=== PATIENT | female | born 1960 | race Caucasian/White ===

== ENCOUNTER 2018-10-12 13:40 | Inpatient (IN) | payer BC ==
[~2018-10-12] VITALS: Ht 167.6 cm; Wt 87.2 kg
[2018-10-12] VITALS (13 sets, daily range): BP systolic 97–126; BP diastolic 53–74
[~2018-10-12 13:40] MED LIST: aminocaproic acid 250 MG/1 ML inj. ONE; heparin 10,000 units/1 ML INJ ONE; papaverine 30 mg/ml 2ml inj. ONE
[2018-10-12] MEDS ORDERED: acetaminophen 1,000mg/100ml IV 100 ML IV ONE (14:13)
[2018-10-12] MEDS ORDERED: ROPIVAcaine 0.5% (5mg/ml) 30ml vial ONE (14:13)
[2018-10-12] MEDS ORDERED: nitroGLYCERIN-Tridil 50MG/D5W 250 ML IV ONE ×2 (14:18→20:03)
[2018-10-12] MEDS ORDERED: insulin glargine (Lantus) pen - multi-dose SQ PRN (14:30)
[2018-10-12] MEDS ORDERED: cefazolin/dext.iso 2gm/50ml 50 ML IV ONE (14:30)
[2018-10-12] MEDS ORDERED: dextrose 50%-water 50ml dispensing syringe IV PRN ×2 (14:30→18:55)
[2018-10-12] MEDS ORDERED: vancomycin/NS 1 GM ADD-VANTAGE 250 ML IV ONE (14:30)
--- NOTE | 2018-10-12 14:30 | NUR ---
The patient, ELISE MOTT, 58 y/o, F admitted by RENE EGAN MD, was given written information regarding hospital policies, unit procedures and contact persons. See Admission information.
[2018-10-12] MEDS ORDERED: midazolam 2 mg/2 ml injection ONE (14:39)
[2018-10-12] MEDS ORDERED: SUFENTANIL CITRATE 50 MCG/ML 2ml ampule IV ONE (14:39)
[2018-10-12] MEDS ORDERED: famotidine/PF 10 mg/ml inj IV ONE (14:40)
[2018-10-12] MEDS ORDERED: phenylephrine 10mg/ml inj. ONE (14:42)
--- NOTE | 2018-10-12 14:50 | NUR ---
To the OR on port O2 and port monitor
[2018-10-12] MEDS ORDERED: protamine sulf. 10mg/ml inj. IV ONE (14:56)
[2018-10-12] MEDS ORDERED: isoflurane 100ml inhalation liquid IH ONE (14:56)
[2018-10-12] MEDS ORDERED: nitroGLYCERIN in D5W 50mg/250ml (Tridil) infusion IV ONE (14:56)
[2018-10-12] MEDS ORDERED: DOPamine/D5W 400mg/250ml bag IV ONE (14:56)
[2018-10-12 15:41] LABS: ABG BASE EXCESS -0.3 mmol/L (-2.0-3.0); ABG HCO3 22.4 mmol/L (22.0-26.0); ABG OXYGEN SATURATION 99.1 % (95-98); ABG PCO2 31.4 mmHg (35.0-45.0); ABG PH 7.472 (7.350-7.450); CL (ABG) 109 mmol/L (99-107); FCOHb 0.6 % (0.5-1.5); FMetHb 0.3 % (0.3-1.12); FO2Hb 98.2 % (94-100); GLUCOSE (ABG) 92 mg/dl (70-105); IONIZED CA (ABG) 1.13 mmol/L (1.03-1.32); K (ABG) 3.7 mmol/L (3.3-5.1); NA (ABG) 139 mmol/L (135-145); TOTAL HEMOGLOBIN 14.3 G/dl (12.0-16.0)
[2018-10-12 15:46] LABS: ACT @ 1.70 U 319 SEC (193-297); ACT @ 2.84 U 476 SEC (260-420); BASELINE ACT 171 SEC (101-148); PATIENT WEIGHT 81.0k KG
[2018-10-12] MEDS ORDERED: papaverine 30 mg/ml 2ml inj. IA ONE (15:48)
[2018-10-12 16:20] LABS: ABG BASE EXCESS VENOUS -2.8 mmol/L; ABG PCO2 VENOUS 43.8 mmHg; ABG PO2 VENOUS 49.1 mmHg; CL (ABG) 108 mmol/L (99-107); FCOHb VENOUS 1.1 %; FHHb VENOUS 17.2 %; FMetHb VENOUS 0.1 %; FO2Hb VENOUS 81.6 %; GLUCOSE (ABG) 93 mg/dl (70-105); IONIZED CA (ABG) 1.09 mmol/L (1.03-1.32); K (ABG) 3.5 mmol/L (3.3-5.1); NA (ABG) 138 mmol/L (135-145); TOTAL HEMOGLOBIN 12.6 G/dl (12.0-16.0)
[2018-10-12 17:31] LABS: ABG BASE EXCESS -3.2 mmol/L (-2.0-3.0); ABG HCO3 20.7 mmol/L (22.0-26.0); ABG OXYGEN SATURATION 99.3 % (95-98); ABG PCO2 33.4 mmHg (35.0-45.0); CL (ABG) 109 mmol/L (99-107); FCOHb 0.8 % (0.5-1.5); FMetHb 0.3 % (0.3-1.12); FO2Hb 98.2 % (94-100); GLUCOSE (ABG) 101 mg/dl (70-105); IONIZED CA (ABG) 1.11 mmol/L (1.03-1.32); K (ABG) 3.8 mmol/L (3.3-5.1); NA (ABG) 139 mmol/L (135-145); TOTAL HEMOGLOBIN 12.6 G/dl (12.0-16.0)
[2018-10-12] MEDS ORDERED: albumin (Human) 5% 250ml 250 ML IV ONE (17:38)
[2018-10-12] MEDS: insulin Lispro (HumaLOG) vial - multi-dose SQ SCH (18:00)
--- NOTE | 2018-10-12 18:19 | NUR ---
181..Patient in room CICU 2011. I have received report from Farnaz GROVE and had the opportunity to ask questions and assume patient care.
[2018-10-12] MEDS: insulin regular, human 100 UNIT in normal saline 100ml IV soln 100 ML IV SCH ×2 (18:25)
[2018-10-12] MEDS ORDERED: sodium bicarbonate (8.4%) inj. 1 MEQ/ML ML ONE (18:32)
[2018-10-12 18:36] LABS: ABG BASE EXCESS VENOUS -7.2 mmol/L; ABG HCO3 VENOUS 19.2 mmol/L; ABG PO2 VENOUS 41.5 mmHg; CL (ABG) 110 mmol/L (99-107); FCOHb VENOUS 1.3 %; FHHb VENOUS 27.6 %; FMetHb VENOUS 0.3 %; FO2Hb VENOUS 70.8 %; GLUCOSE (ABG) 106 mg/dl (70-105); K (ABG) 3.4 mmol/L (3.3-5.1); NA (ABG) 139 mmol/L (135-145); TOTAL HEMOGLOBIN 11.8 G/dl (12.0-16.0)
[2018-10-12] MEDS ORDERED: niCARDipine-NS 40mg/200ml IVPB 200 ML IV PRN (18:54)
[2018-10-12] MEDS ORDERED: sodium chloride 0.45% 1,000 ML IV SCH (18:54)
[2018-10-12] MEDS ORDERED: DOPamine 400mg/D5W 250ml 250 ML IV PRN (18:54)
[2018-10-12] MEDS ORDERED: nitroGLYCERIN-Tridil 50MG/D5W 250 ML IV PRN (18:54)
[2018-10-12] MEDS ORDERED: normal saline 250ml IV soln 250 ML IV PRN (18:55)
[2018-10-12] MEDS ORDERED: potassium Cl 20mEq/100mL bag 100 ML IV PRN (18:55)
[2018-10-12] MEDS ORDERED: albumin (Human) 5% 250ml 250 ML IV PRN (18:55)
[2018-10-12] MEDS ORDERED: magnesium 4gm in 100ml NS 100 ML IV PRN (18:55)
[2018-10-12] MEDS ORDERED: sodium phosphate inj. 30 MMOL in dextrose 5%-water 250 ML IV PRN (18:55)
[2018-10-12] MEDS ORDERED: morphine 4 MG/ML inj SYRINge IV PRN (18:55)
[2018-10-12] MEDS ORDERED: pantoprazole 40 MG vial IV ONE (18:55)
[2018-10-12] MEDS ORDERED: ondansetron/PF 4mg/2ml inj IV PRN (18:55)
[2018-10-12] MEDS ORDERED: acetaminophen 325mg tablet PO PRN (18:55)
[2018-10-12] MEDS ORDERED: magnesium hydroxide 30ml (MOM) UD suspension PO PRN (18:55)
[2018-10-12] MEDS ORDERED: sodium phosphate inj. 15 MMOL in dextrose 5%-water 150 ML IV PRN (18:55)
[2018-10-12] MEDS ORDERED: metoclopramide 5 mg/ml inj IV PRN (18:55)
[2018-10-12] MEDS ORDERED: magnesium 2GM in 50ml NS 50 ML IV PRN (18:55)
[2018-10-12] MEDS ORDERED: Neutra Phos packet PO PRN (18:55)
[2018-10-12] MEDS: insulin regular, human inj. 100 UNITS in normal saline 100ml IV soln 100 ML IV SCH ×2 (18:55)
[2018-10-12] MEDS ORDERED: ipratropium/albuterol 3ml nebule IH PRN (19:20)
[2018-10-12] MEDS ORDERED: sodium bicarbonate (8.4%) 1 mEq/ml syringe ONE (19:29)
[2018-10-12 19:30] LABS: ABG BASE EXCESS -5.9 mmol/L (-2.0-3.0); ABG HCO3 20.4 mmol/L (22.0-26.0); ABG OXYGEN SATURATION 97.7 % (95-98); ABG PCO2 (T) 43.3 mmHg (32.0-45.0); ABG PH (T) 7.291 (7.350-7.450); ABG PO2 (T) 130.2 mmHg (83-108); FCOHb 0.3 % (0.5-1.5); FMetHb 0.2 % (0.3-1.12); FO2Hb 97.2 % (94-100); MINUTE VOLUME 6 L/min; PEEP 5 cm H2O; RESPIRATORY RATE 12 b/min; RESPIRATORY RATE (OBSERVED) 12 b/min; TIDAL VOLUME 600 mL; TOTAL HEMOGLOBIN 12.3 G/dl (12.0-16.0)
[2018-10-12] MEDS: morphine 4 MG/ML inj SYRINge IV PRN ×3 (19:31→23:15)
[2018-10-12] MEDS: mupirocin 2% nasal ointment 1gm UD NS SCH (19:31)
[2018-10-12] MEDS: vancomycin/NS 1 GM ADD-VANTAGE 250 ML IV SCH (19:33)
[2018-10-12] MEDS ORDERED: propofol 1000mg/100ml bottle 100 ML IV ONE (19:51)
[2018-10-12] MEDS: mupirocin 2% ointment 22GM NS SCH (20:00)
[2018-10-12] MEDS: docusate sod 100mg capsule PO SCH (20:00)
[2018-10-12 20:02] LABS: ALANINE AMINOTRANSFERASE 7 U/L (12-78); ALBUMIN/GLOBULIN RATIO 1.5 (1.1-1.5); ALKALINE PHOSPHATASE 46 IU/L (46-116); ANION GAP 10 (8-16); ASPARTATE AMINO TRANSFERASE 16 U/L (10-37); BILIRUBIN,TOTAL 0.5 MG/DL (0.1-1.0); BLOOD UREA NITROGEN 10 MG/DL (7-18); BUN/CREATININE RATIO 17.2 (6.6-38.0); CALCIUM 7.3 MG/DL (8.5-10.1); CHLORIDE 113 MMOL/L (99-107); CREATININE 0.58 MG/DL (0.40-0.90); GLUCOSE 118 MG/DL (70-104); MAGNESIUM 1.5 MG/DL (1.5-2.4); PHOSPHORUS 2.9 MG/DL (2.3-4.5); POTASSIUM 3.5 MMOL/L (3.5-5.1); SODIUM 146 MMOL/L (135-145); eGFR > 90 ML/MIN
[2018-10-12] MEDS ORDERED: iohexol 350 MG/1 ML 200ml bottle ONE (20:03)
[2018-10-12] MEDS ORDERED: LIDOcaine 1% (10mg/ml)w/preservative injection 20ml MDV ONE (20:03)
[2018-10-12] MEDS ORDERED: heparin 1,000unit/ml 10ml vial 10 ML ONE (20:03)
[2018-10-12 20:14] LABS: BASOPHILS % (AUTO) 0.2 % (0-1); EOSINOPHILS # (AUTO) 0.2 X10'3 (0-0.9); EOSINOPHILS % (AUTO) 1.4 % (0-6); HEMATOCRIT 34.6 % (35.0-45.0); HEMOGLOBIN 11.8 g/dl (12.0-16.0); LYMPHOCYTES # (AUTO) 2.5 X10'3 (1.1-4.8); LYMPHOCYTES % (AUTO) 22.7 % (21-51); MEAN CORPUSCULAR HEMOGLOBIN 30.6 PG (27.0-31.0); MEAN CORPUSCULAR VOLUME 89.8 FL (78-98); MEAN PLATELET VOLUME 9.2 FL (7.4-10.4); MONOCYTES # (AUTO) 0.7 X10'3 (0-0.9); MONOCYTES % (AUTO) 6.2 % (2-12); NEUTROPHILS # (AUTO) 7.7 X10'3 (1.8-7.7); NEUTROPHILS % (AUTO) 69.5 % (42-75); PLATELET COUNT 149 X10'3 (140-440); RED BLOOD COUNT 3.86 X10'6 (4.20-5.60); RED CELL DISTRIBUTION WIDTH 13.3 % (11.5-14.5)
[2018-10-12 20:28] LABS: INR 1.2 INR; PARTIAL THROMBOPLASTIN TIME 33 SECONDS (22-32)
--- NOTE | 2018-10-12 20:38 | NUR ---
1905..Received to room 2012, accompanied by Christine Brice and surgical crew. Placed on ventilator, to engine monitor, arterial line and PA line pressure monitored. Chest tubes to suction at 20 cm. Romo cath to gravity drainage. Dressings are dry and intact. See assessment record. All vasoactive drugs are infusing via central line.
--- NOTE | 2018-10-12 21:03 | NUR ---
2030..To cathodic protection technician via bed, with RNx2,RT, and monitored.
[2018-10-12] MEDS: potassium Cl 20mEq/100mL bag 100 ML IV PRN ×2 (21:29→23:12)
--- NOTE | 2018-10-12 23:51 | NUR ---
..Return from laboratory veterinarian, art sheath to right groin with no bleeding or hematoma noted, to pressure tubing and monitor. Art line to left wrist discontinued, site puffy and bruised, cath tip intact, hemostasis achieved with 10 minutes manual pressure, pressure dsg applied. pulses intact.
[2018-10-13] VITALS (24 sets, daily range): BP systolic 93–115; BP diastolic 53–68
[2018-10-13] MEDS: ceFAZolin 1GM/D5W- ADD-VANTAGE 50 ML IV SCH ×3 (00:32→15:34)
--- NOTE | 2018-10-13 00:46 | NUR ---
2300..Art sheath to right groin intact, bruising noted distal and to the left of insertion site, area soft, no hematoma noted, kimberley wrap to right thigh/hip loosened, distal pulses intact.
--- NOTE | 2018-10-13 01:21 | NUR ---
0100..Right groin unchanged, continuing to wean vent as tolerated. No other changes noted.
--- NOTE | 2018-10-13 02:39 | NUR ---
0200..Attempted SBT, failed, will try again later. No other changes noted.
[2018-10-13 02:48] LABS: BASOPHILS % (AUTO) 0.1 % (0-1); EOSINOPHILS % (AUTO) 0.1 % (0-6); HEMATOCRIT 34.2 % (35.0-45.0); HEMOGLOBIN 11.6 g/dl (12.0-16.0); LYMPHOCYTES # (AUTO) 0.9 X10'3 (1.1-4.8); LYMPHOCYTES % (AUTO) 7.1 % (21-51); MEAN CORPUSCULAR HEMOGLOBIN 30.5 PG (27.0-31.0); MEAN CORPUSCULAR HGB CONC 33.9 g/dL (33.0-36.5); MEAN CORPUSCULAR VOLUME 89.8 FL (78-98); MEAN PLATELET VOLUME 9.5 FL (7.4-10.4); MONOCYTES # (AUTO) 0.9 X10'3 (0-0.9); MONOCYTES % (AUTO) 7.2 % (2-12); NEUTROPHILS # (AUTO) 10.8 X10'3 (1.8-7.7); NEUTROPHILS % (AUTO) 85.5 % (42-75); PLATELET COUNT 184 X10'3 (140-440); RED CELL DISTRIBUTION WIDTH 13.5 % (11.5-14.5); WHITE BLOOD COUNT 12.6 X10'3 (4.5-11.0)
[2018-10-13 02:57] LABS: ALANINE AMINOTRANSFERASE 17 U/L (12-78); ALBUMIN 3.5 G/DL (3.4-5.0); ALBUMIN/GLOBULIN RATIO 1.7 (1.1-1.5); ALKALINE PHOSPHATASE 49 IU/L (46-116); ANION GAP 10 (8-16); ASPARTATE AMINO TRANSFERASE 30 U/L (10-37); BILIRUBIN,TOTAL 0.6 MG/DL (0.1-1.0); BLOOD UREA NITROGEN 9 MG/DL (7-18); BUN/CREATININE RATIO 14.5 (6.6-38.0); CALCIUM 7.8 MG/DL (8.5-10.1); CHLORIDE 110 MMOL/L (99-107); CREATININE 0.62 MG/DL (0.40-0.90); GLUCOSE 143 MG/DL (70-104); MAGNESIUM 1.8 MG/DL (1.5-2.4); PHOSPHORUS 2.2 MG/DL (2.3-4.5); POTASSIUM 3.8 MMOL/L (3.5-5.1); SODIUM 144 MMOL/L (135-145); TOTAL PROTEIN 5.6 G/DL (6.4-8.2); eGFR > 90 ML/MIN
[2018-10-13 03:04] LABS: INR 1.1 INR; PARTIAL THROMBOPLASTIN TIME 32 SECONDS (22-32); PROTHROMBIN TIME 10.8 SECONDS (9.0-12.0)
[2018-10-13 03:05] LABS: ABG BASE EXCESS -4.4 mmol/L (-2.0-3.0); ABG HCO3 21.2 mmol/L (22.0-26.0); ABG OXYGEN SATURATION 96.1 % (95-98); ABG PCO2 (T) 40.2 mmHg (32.0-45.0); ABG PH (T) 7.338 (7.350-7.450); ABG PO2 (T) 88.4 mmHg (83-108); FCOHb 0.3 % (0.5-1.5); FMetHb 0.1 % (0.3-1.12); FO2Hb 95.7 % (94-100); MINUTE VOLUME 7 L/min; PATIENT TEMPERATURE 36.8; PEEP 5 cm H2O; RESPIRATORY RATE (OBSERVED) 11 b/min; TOTAL HEMOGLOBIN 12.1 G/dl (12.0-16.0)
--- NOTE | 2018-10-13 03:24 | NUR ---
0315..Passed weaning parameters and SBT, extubated to 4l nasal cannula, no wheezing or stridor. No other changes noted.
[2018-10-13] MEDS: HYDROcodone/acetaminophen 10/325mg tab PO PRN ×4 (03:31→20:27)
[2018-10-13] MEDS: potassium Cl 20mEq/100mL bag 100 ML IV PRN ×4 (03:31→23:13)
--- NOTE | 2018-10-13 03:34 | NUR ---
0330..Complains of incisional pain 8\10, medicated with norco 10\325 2 tabs per md orders.
--- NOTE | 2018-10-13 05:22 | NUR ---
0500..States norco effective for pain relief, bruise to right groin unchanged, no hematoma felt, distal pulses intact. No other changes noted.
--- NOTE | 2018-10-13 06:30 | NUR ---
Patient in room CICU 2011. I have received report from PERFECTO Winkler and had the opportunity to ask questions and assume patient care.
[2018-10-13] MEDS: atorvastatin 10mg tablet PO SCH (07:51)
[2018-10-13] MEDS: docusate sod 100mg capsule PO SCH ×2 (07:51→20:27)
[2018-10-13] MEDS: mupirocin 2% nasal ointment 1gm UD NS SCH ×2 (07:54→20:28)
[2018-10-13] MEDS: mupirocin 2% ointment 22GM NS SCH ×2 (08:00→20:00)
[2018-10-13] MEDS ORDERED: aspirin 325mg tablet, delayed-release (Ecotrin) PO SCH (08:00)
[2018-10-13] MEDS: metoprolol tartrate 12.5mg (1/2 tablet) PO SCH ×2 (08:04→20:27)
[2018-10-13] MEDS ORDERED: CHOL100046 PO (08:08)
[2018-10-13] MEDS ORDERED: LORA10TA65 PO (08:08)
[2018-10-13] MEDS ORDERED: ASCO-134 PO (08:08)
[2018-10-13] MEDS ORDERED: MULT-955 PO (08:09)
--- NOTE | 2018-10-13 08:15 | NUR ---
Dr Burgess at bedside and given update on patient status. He was made aware that ART line came out last night due to loss of integrity, so BP being measured using sheath. I informed him that dopamine and nitro drips are still up including dose rates. He states to wean off dopamine drips before taking out the sheath and using the femstop. I also asked if I should hold or give the lopressor and he states to give. All chest tube and riojas outputs reported, CI and CO reported. He states also that we can get another AM EKG, but also looked at rhythm and assessed the ST elevation.
[2018-10-13] MEDS: loratadine 10mg tablet PO SCH (08:25)
[2018-10-13] MEDS: vancomycin/NS 1 GM ADD-VANTAGE 250 ML IV SCH ×2 (08:42→20:24)
[2018-10-13] MEDS: insulin Lispro (HumaLOG) vial - multi-dose SQ SCH ×6 (09:00→18:30)
--- NOTE | 2018-10-13 09:30 | NUR ---
Dr Gerber and Kat Alfredo REAL ESTATE ASSET MANAGER at bedside, given update. states he would like patient to start plavix, I noted to Kat that Dr Burgess already ordered plavix for tomorrow. I discussed plan received from Dr Burgess to take out the sheath once the dopamine has been weaned off to which he agreed.
[2018-10-13 09:36] LABS: CHOL/HDL RATIO 3.3 (0.00-4.99); CHOLESTEROL 97 MG/DL (0-200); HDL CHOLESTEROL 29 MG/DL (35-60); LDL CHOLESTEROL 64 MG/DL (50-100); TRIGLYCERIDES 81 MG/DL (20-135)
[2018-10-13] MEDS ORDERED: MESSAGE TO NURSING PO ONE (10:00)
[2018-10-13 10:01] LABS: MAGNESIUM 3.2 MG/DL (1.5-2.4); POTASSIUM 4.1 MMOL/L (3.5-5.1)
--- NOTE | 2018-10-13 13:38 | NUR ---
CABG consult, patient s/p CABG x1 and has increased protein needs r/t post op surgical wound to chest. Ate 50% of breakfast today. Pt fatigued today. Will provide written post cardiac surgery education handout when appropriate. Addendum: 10/13/18 at [address] Amended: Links added.
--- NOTE | 2018-10-13 13:40 | NUR ---
Spoke with Dr Burgess by phone and gave update on dopamine being off for almost 2 hours, pt BP remains stable, no chest pain or change in status.He states okay to take out sheath. I clarified the nitro drip which is still running at 1mcg and asked if he would like me to keep it on for 24 hours since pt has had some vasospasms, he states yes, keep on for 24 hours. Will continue to monitor closely.
--- NOTE | 2018-10-13 15:20 | NUR ---
At 1450 sheath removed and pressure held to site for 20 minutes. FemStop placed after pressure held. Bruising to groin purple but remains soft. Outlined to monitor. Pt not complained of much pain to groin but states "it's been a little tender since last night". Otherwise pt tolerated well. Charge at bedside to observe bruising.
--- NOTE | 2018-10-13 18:30 | NUR ---
Patient in room CICU 2011. I have received report from Honey GROVE and had the opportunity to ask questions and assume patient care. Pt resting in bed reverse Trendelenburg, FemoStop in place s/p right femoral sheath removal. Nitroglycerine gtt infusing, and 1/2 NS infusing per provider orders. pt on 1LNC with spo2 at 94%, states pain at 4/10 at this time, no s/s of distress. riojas cath to gravity drainage, side rails up, call light in reach. See interventions for further information. Will continue to monitor.
--- NOTE | 2018-10-13 18:30 | NUR ---
Problems reprioritized. Patient report given, questions answered & plan of care reviewed with PERFECTO Moore.
[2018-10-13] MEDS: insulin regular, human inj. 100 UNITS in normal saline 100ml IV soln 100 ML IV SCH ×2 (18:55)
[2018-10-13 21:55] LABS: MAGNESIUM 2.7 MG/DL (1.5-2.4); PHOSPHORUS 3.5 MG/DL (2.3-4.5); POTASSIUM 4.1 MMOL/L (3.5-5.1)
[2018-10-13 22:04] LABS: HEMOGLOBIN 10.1 g/dl (12.0-16.0); MEAN CORPUSCULAR HEMOGLOBIN 30.3 PG (27.0-31.0); MEAN CORPUSCULAR HGB CONC 33.5 g/dL (33.0-36.5); MEAN CORPUSCULAR VOLUME 90.4 FL (78-98); MEAN PLATELET VOLUME 9.6 FL (7.4-10.4); PLATELET COUNT 156 X10'3 (140-440); RED BLOOD COUNT 3.32 X10'6 (4.20-5.60); RED CELL DISTRIBUTION WIDTH 13.6 % (11.5-14.5); WHITE BLOOD COUNT 8.7 X10'3 (4.5-11.0)
[2018-10-13] MEDS: insulin regular, human 100 UNIT in normal saline 100ml IV soln 100 ML IV SCH ×2 (23:46)
[2018-10-14] VITALS (21 sets, daily range): BP systolic 89–132; BP diastolic 47–74
[2018-10-14] MEDS: ceFAZolin 1GM/D5W- ADD-VANTAGE 50 ML IV SCH ×2 (00:14→09:24)
[2018-10-14 03:46] LABS: ALBUMIN 2.8 G/DL (3.4-5.0); ANION GAP 6 (8-16); BLOOD UREA NITROGEN 14 MG/DL (7-18); BUN/CREATININE RATIO 20.9 (6.6-38.0); CALCIUM 8.2 MG/DL (8.5-10.1); CHLORIDE 106 MMOL/L (99-107); CREATININE 0.67 MG/DL (0.40-0.90); GLUCOSE 118 MG/DL (70-104); POTASSIUM 4.6 MMOL/L (3.5-5.1); SODIUM 137 MMOL/L (135-145); TOTAL CARBON DIOXIDE 25.3 MMOL/L (24-32); eGFR 90 ML/MIN
[2018-10-14 04:02] LABS: BASOPHILS % (AUTO) 0.3 % (0-1); EOSINOPHILS # (AUTO) 0.2 X10'3 (0-0.9); EOSINOPHILS % (AUTO) 3.1 % (0-6); HEMATOCRIT 27.4 % (35.0-45.0); HEMOGLOBIN 9.2 g/dl (12.0-16.0); LYMPHOCYTES # (AUTO) 1.2 X10'3 (1.1-4.8); MEAN CORPUSCULAR HEMOGLOBIN 30.7 PG (27.0-31.0); MEAN CORPUSCULAR HGB CONC 33.7 g/dL (33.0-36.5); MEAN CORPUSCULAR VOLUME 91.2 FL (78-98); MEAN PLATELET VOLUME 9.6 FL (7.4-10.4); MONOCYTES # (AUTO) 0.7 X10'3 (0-0.9); MONOCYTES % (AUTO) 9.1 % (2-12); NEUTROPHILS # (AUTO) 5.5 X10'3 (1.8-7.7); NEUTROPHILS % (AUTO) 71.5 % (42-75); PLATELET COUNT 125 X10'3 (140-440); RED BLOOD COUNT 3.01 X10'6 (4.20-5.60); RED CELL DISTRIBUTION WIDTH 13.3 % (11.5-14.5); WHITE BLOOD COUNT 7.7 X10'3 (4.5-11.0)
[2018-10-14] MEDS: HYDROcodone/acetaminophen 10/325mg tab PO PRN ×3 (04:42→20:07)
--- NOTE | 2018-10-14 06:17 | NUR ---
Problems reprioritized. Patient report given, questions answered & plan of care reviewed with Honey GROVE.
--- NOTE | 2018-10-14 06:30 | NUR ---
Patient in room CICU 2011. I have received report from PERFECTO Moore and had the opportunity to ask questions and assume patient care.
--- NOTE | 2018-10-14 07:00 | NUR ---
Patient in room CICU 2011. I have received report from PERFECTO Le and had the opportunity to ask questions and assume patient care.
--- NOTE | 2018-10-14 07:05 | NUR ---
Problems reprioritized. Patient report given, questions answered & plan of care reviewed with PERFECTO Celestin.
[2018-10-14 07:40] LABS: MAGNESIUM 2.5 MG/DL (1.5-2.4)
[2018-10-14] MEDS: mupirocin 2% nasal ointment 1gm UD NS SCH (08:00)
[2018-10-14] MEDS: mupirocin 2% ointment 22GM NS SCH (08:00)
[2018-10-14] MEDS: vitamin D (cholecalciferol) 1,000 unit tablet PO SCH (09:22)
[2018-10-14] MEDS: loratadine 10mg tablet PO SCH (09:22)
[2018-10-14] MEDS: docusate sod 100mg capsule PO SCH ×2 (09:23→19:38)
[2018-10-14] MEDS: ascorbic acid 500mg tablet PO SCH (09:23)
[2018-10-14] MEDS: multivitamins, therapeutics tablet PO SCH (09:23)
[2018-10-14] MEDS: aspirin 81mg tab.chew PO SCH (09:23)
[2018-10-14] MEDS: atorvastatin 10mg tablet PO SCH (09:23)
[2018-10-14] MEDS: pantoprazole 40mg Tablet.DR PO SCH (09:28)
[2018-10-14] MEDS ORDERED: potassium Cl 20 mEq SR tablet PO PRN ×2 (10:05)
[2018-10-14] MEDS ORDERED: potassium Cl 40MEQ/NS 500ml 500 ML IV PRN ×2 (10:05)
[2018-10-14] MEDS ORDERED: magnesium Cl slow-release 64mg tablet PO PRN (10:05)
[2018-10-14] MEDS ORDERED: magnesium 2GM in 50ml NS 50 ML IV PRN (10:05)
[2018-10-14] MEDS ORDERED: magnesium 4gm in 100ml NS 100 ML IV PRN (10:05)
[2018-10-14] MEDS: clopidogrel 75mg tablet PO SCH (10:06)
[2018-10-14] MEDS: metoprolol tartrate 12.5mg (1/2 tablet) PO SCH ×2 (10:07→19:38)
--- NOTE | 2018-10-14 16:15 | NUR ---
CABG consult: Pt seen at bedside given written and verbal nutrition and wound healing after cardiac surgery with RD contact information. Pt very receptive to information and states she usually drinks protein smoothies and Premier Protein at home. Pt agreeable to high protein strawberry/banana smoothie at breakfast, high protein vanilla shake at lunch, and vanilla Ensure high protein at dinner to optimize PO intake and provide additional protein for wound healing, MD vieyra, d/w dietary. Pt also requests soup with all meals d/t difficulty swallowing, d/w dietary. Pt denies any change in texture modification of meals at this time. Pt currently with no active diet order although documented PO intake of 75%, d/w RN. Will continue to follow. Addendum: 10/14/18 at [address] Amended: Links added.
--- NOTE | 2018-10-14 17:49 | NUR ---
Pt to be transferred to [facility], report called to RN. VSS throughout the day. SBP 80's-90's this AM, ok to give pts betablocker per Dr. Burgess. SBP ranging 90-120's throughout the day. Central line removed at 1711, riojas removed at 1730. Maxwell given for surgical site pain this AM with relief. Pt has denied any other pain. Chest tubes removed per Dr. Burgess this AM, site CDI. Pt remains on post-surgical accu-checks, has not met protocol. Bruising noted to right groin s/p [facility], Dr. Burgess aware and stated ok to give Plavix. Safety maintained ambulating around the unit several times today.
--- NOTE | 2018-10-14 18:04 | NUR ---
Patient in room MED 307. I have received report from Devorah and had the opportunity to ask questions and assume patient care.
--- NOTE | 2018-10-14 18:25 | NUR ---
Patient in room CICU 2011. I have received report from Liz GROVE and had the opportunity to ask questions and assume patient care. Pt resting in bed on 1LNC, no s/s of distress, no c/o of pain. All monitoring alarms audible. Will continue to monitor.
[2018-10-14] MEDS: lactose-reduced food (Ensure High Protein) 237ml bottle PO SCH (18:30)
--- NOTE | 2018-10-14 19:03 | NUR ---
Problems reprioritized. Patient report given, questions answered & plan of care reviewed with Chino RN. Pt to be transferred to ACCE unit room 307.
--- NOTE | 2018-10-14 19:20 | NUR ---
Patient transferred to ACCE room 307, report completed at bedside with Chino RN and Lina charge master coordinator. All belongings with pt on transfer. Pt orientated to new room.
[2018-10-14] MEDS: magnesium Cl slow-release 64mg tablet PO SCH (20:00)
[2018-10-14] MEDS: potassium Cl 20 mEq SR tablet PO SCH (20:00)
[2018-10-15 03:00] VITALS: BP 113/54
[2018-10-15] MEDS: HYDROcodone/acetaminophen 10/325mg tab PO PRN ×2 (04:27→19:03)
[2018-10-15 05:33] LABS: BASOPHILS % (AUTO) 0.2 % (0-1); EOSINOPHILS # (AUTO) 0.3 X10'3 (0-0.9); EOSINOPHILS % (AUTO) 4.7 % (0-6); HEMATOCRIT 30.8 % (35.0-45.0); HEMOGLOBIN 10.5 g/dl (12.0-16.0); LYMPHOCYTES # (AUTO) 1.3 X10'3 (1.1-4.8); LYMPHOCYTES % (AUTO) 18.4 % (21-51); MEAN CORPUSCULAR HEMOGLOBIN 30.7 PG (27.0-31.0); MEAN CORPUSCULAR HGB CONC 33.9 g/dL (33.0-36.5); MEAN CORPUSCULAR VOLUME 90.5 FL (78-98); MEAN PLATELET VOLUME 9.6 FL (7.4-10.4); MONOCYTES # (AUTO) 0.5 X10'3 (0-0.9); MONOCYTES % (AUTO) 6.5 % (2-12); NEUTROPHILS # (AUTO) 4.9 X10'3 (1.8-7.7); NEUTROPHILS % (AUTO) 70.2 % (42-75); PLATELET COUNT 119 X10'3 (140-440); RED BLOOD COUNT 3.41 X10'6 (4.20-5.60); RED CELL DISTRIBUTION WIDTH 13.6 % (11.5-14.5)
[2018-10-15 05:52] LABS: ALBUMIN 3.1 G/DL (3.4-5.0); ANION GAP 10 (8-16); BLOOD UREA NITROGEN 11 MG/DL (7-18); CALCIUM 8.8 MG/DL (8.5-10.1); CHLORIDE 105 MMOL/L (99-107); CREATININE 0.55 MG/DL (0.40-0.90); GLUCOSE 94 MG/DL (70-104); POTASSIUM 3.8 MMOL/L (3.5-5.1); SODIUM 139 MMOL/L (135-145); TOTAL CARBON DIOXIDE 24.2 MMOL/L (24-32); eGFR > 90 ML/MIN
[2018-10-15 06:00] VITALS: BP 118/52
--- NOTE | 2018-10-15 06:05 | NUR ---
Patient in room MED 307. I have received report from PERFECTO HUSSEIN, and had the opportunity to ask questions and assume patient care.
[2018-10-15] MEDS: magnesium Cl slow-release 64mg tablet PO SCH ×2 (08:00→20:49)
[2018-10-15] MEDS: K and/or MAG REPLACEMENT MC SCH (08:00)
[2018-10-15] MEDS: aspirin 81mg tab.chew PO SCH (08:04)
[2018-10-15] MEDS: docusate sod 100mg capsule PO SCH ×2 (08:04→20:51)
[2018-10-15] MEDS: loratadine 10mg tablet PO SCH (08:04)
[2018-10-15] MEDS: clopidogrel 75mg tablet PO SCH (08:04)
[2018-10-15] MEDS: atorvastatin 10mg tablet PO SCH (08:04)
[2018-10-15] MEDS: vitamin D (cholecalciferol) 1,000 unit tablet PO SCH (08:04)
[2018-10-15] MEDS: ascorbic acid 500mg tablet PO SCH (08:05)
[2018-10-15] MEDS: multivitamins, therapeutics tablet PO SCH (08:05)
[2018-10-15] MEDS: metoprolol tartrate 12.5mg (1/2 tablet) PO SCH ×2 (08:05→20:49)
[2018-10-15] MEDS: pantoprazole 40mg Tablet.DR PO SCH (08:05)
[2018-10-15] MEDS: potassium Cl 20 mEq SR tablet PO SCH ×2 (08:05→20:45)
[2018-10-15] MEDS: High Protein Smoothie Arginine/Glut./Ca2+Bmb (Juven 19.3pkt) 240ml cup PO SCH (08:06)
[2018-10-15] MEDS ORDERED: magnesium citrate 296ml oral solution PO ONE (08:50)
[2018-10-15 11:00] VITALS: BP 105/59
[2018-10-15] MEDS: High Protein Shake w/Arg/Glut/Ca2+Bmb (Juven 19.3gm) pkt 240ml PO SCH (12:41)
[2018-10-15 15:00] VITALS: BP 113/60
[2018-10-15] MEDS: lactose-reduced food (Ensure High Protein) 237ml bottle PO SCH (17:00)
[2018-10-15 18:00] VITALS: BP 131/68
--- NOTE | 2018-10-15 18:00 | NUR ---
Patient in room PCU 3008. I have received report from PERFECTO Keen and had the opportunity to ask questions and assume patient care.
[2018-10-15 22:00] VITALS: BP 131/69
[2018-10-16] VITALS (7 sets, daily range): BP systolic 107–137; BP diastolic 52–70
--- NOTE | 2018-10-16 06:11 | NUR ---
Problems reprioritized. Patient report given, questions answered & plan of care reviewed with PERFECTO Fairchild.
--- NOTE | 2018-10-16 06:30 | NUR ---
Patient in room PCU 3008. I have received report from Neeta GROVE and had the opportunity to ask questions and assume patient care.
[2018-10-16 06:38] LABS: BASOPHILS % (AUTO) 0.4 % (0-1); EOSINOPHILS # (AUTO) 0.4 X10'3 (0-0.9); EOSINOPHILS % (AUTO) 6.5 % (0-6); HEMATOCRIT 26.1 % (35.0-45.0); HEMOGLOBIN 8.9 g/dl (12.0-16.0); LYMPHOCYTES # (AUTO) 1.1 X10'3 (1.1-4.8); LYMPHOCYTES % (AUTO) 19.1 % (21-51); MEAN CORPUSCULAR HEMOGLOBIN 30.8 PG (27.0-31.0); MEAN CORPUSCULAR HGB CONC 34.1 g/dL (33.0-36.5); MEAN CORPUSCULAR VOLUME 90.3 FL (78-98); MEAN PLATELET VOLUME 9.3 FL (7.4-10.4); MONOCYTES # (AUTO) 0.6 X10'3 (0-0.9); MONOCYTES % (AUTO) 10.1 % (2-12); NEUTROPHILS # (AUTO) 3.7 X10'3 (1.8-7.7); NEUTROPHILS % (AUTO) 63.9 % (42-75); PLATELET COUNT 135 X10'3 (140-440); RED BLOOD COUNT 2.89 X10'6 (4.20-5.60); RED CELL DISTRIBUTION WIDTH 13.4 % (11.5-14.5); WHITE BLOOD COUNT 5.8 X10'3 (4.5-11.0)
[2018-10-16 06:44] LABS: ALBUMIN 2.8 G/DL (3.4-5.0); ANION GAP 10 (8-16); BLOOD UREA NITROGEN 13 MG/DL (7-18); BUN/CREATININE RATIO 21.7 (6.6-38.0); CALCIUM 8.5 MG/DL (8.5-10.1); CHLORIDE 106 MMOL/L (99-107); GLUCOSE 98 MG/DL (70-104); MAGNESIUM 2.3 MG/DL (1.5-2.4); POTASSIUM 3.9 MMOL/L (3.5-5.1); SODIUM 139 MMOL/L (135-145); TOTAL CARBON DIOXIDE 22.9 MMOL/L (24-32); eGFR > 90 ML/MIN
[2018-10-16] MEDS ORDERED: furosemide 40mg/4ml inj IV ONE ×2 (07:05→17:05)
[2018-10-16] MEDS: magnesium Cl slow-release 64mg tablet PO SCH ×2 (08:00→18:56)
[2018-10-16] MEDS: K and/or MAG REPLACEMENT MC SCH (08:00)
[2018-10-16] MEDS: docusate sod 100mg capsule PO SCH ×2 (08:00→19:34)
[2018-10-16] MEDS: aspirin 81mg tab.chew PO SCH (08:16)
[2018-10-16] MEDS: pantoprazole 40mg Tablet.DR PO SCH (08:17)
[2018-10-16] MEDS: potassium Cl 20 mEq SR tablet PO SCH ×2 (08:17→19:38)
[2018-10-16] MEDS: atorvastatin 10mg tablet PO SCH (08:17)
[2018-10-16] MEDS: vitamin D (cholecalciferol) 1,000 unit tablet PO SCH (08:17)
[2018-10-16] MEDS: loratadine 10mg tablet PO SCH (08:17)
[2018-10-16] MEDS: multivitamins, therapeutics tablet PO SCH (08:18)
[2018-10-16] MEDS: ascorbic acid 500mg tablet PO SCH (08:18)
[2018-10-16] MEDS: High Protein Smoothie Arginine/Glut./Ca2+Bmb (Juven 19.3pkt) 240ml cup PO SCH (08:22)
[2018-10-16] MEDS: clopidogrel 75mg tablet PO SCH (08:23)
[2018-10-16] MEDS: metoprolol tartrate 12.5mg (1/2 tablet) PO SCH ×2 (08:28→19:41)
[2018-10-16] MEDS: HYDROcodone/acetaminophen 10/325mg tab PO PRN ×2 (08:55→19:41)
[2018-10-16] MEDS: High Protein Shake w/Arg/Glut/Ca2+Bmb (Juven 19.3gm) pkt 240ml PO SCH (12:30)
[2018-10-16 13:50] LABS: ACTIVATED CLOTTING TIME 126 SEC (101-148)
[2018-10-16] MEDS: lactose-reduced food (Ensure High Protein) 237ml bottle PO SCH (17:14)
--- NOTE | 2018-10-16 18:08 | NUR ---
Problems reprioritized. Patient report given, questions answered & plan of care reviewed with Alka GROVE.
--- NOTE | 2018-10-16 18:09 | NUR ---
Patient in room PCU 3008. I have received report from ARLEY zamarripa and had the opportunity to ask questions and assume patient care.
[2018-10-17 02:00] VITALS: BP 105/60
[2018-10-17 05:38] LABS: BASOPHILS % (AUTO) 0.6 % (0-1); EOSINOPHILS # (AUTO) 0.4 X10'3 (0-0.9); EOSINOPHILS % (AUTO) 8.6 % (0-6); HEMOGLOBIN 8.7 g/dl (12.0-16.0); LYMPHOCYTES % (AUTO) 21.2 % (21-51); MEAN CORPUSCULAR HEMOGLOBIN 31.5 PG (27.0-31.0); MEAN CORPUSCULAR HGB CONC 34.9 g/dL (33.0-36.5); MEAN CORPUSCULAR VOLUME 90.2 FL (78-98); MONOCYTES # (AUTO) 0.5 X10'3 (0-0.9); MONOCYTES % (AUTO) 9.8 % (2-12); NEUTROPHILS # (AUTO) 2.8 X10'3 (1.8-7.7); NEUTROPHILS % (AUTO) 59.8 % (42-75); PLATELET COUNT 147 X10'3 (140-440); RED BLOOD COUNT 2.77 X10'6 (4.20-5.60); RED CELL DISTRIBUTION WIDTH 13.4 % (11.5-14.5); WHITE BLOOD COUNT 4.7 X10'3 (4.5-11.0)
[2018-10-17 05:48] LABS: ALBUMIN 2.8 G/DL (3.4-5.0); ANION GAP 10 (8-16); BLOOD UREA NITROGEN 13 MG/DL (7-18); BUN/CREATININE RATIO 19.4 (6.6-38.0); CALCIUM 8.2 MG/DL (8.5-10.1); CHLORIDE 107 MMOL/L (99-107); CREATININE 0.67 MG/DL (0.40-0.90); GLUCOSE 100 MG/DL (70-104); MAGNESIUM 2.1 MG/DL (1.5-2.4); POTASSIUM 3.6 MMOL/L (3.5-5.1); SODIUM 141 MMOL/L (135-145); TOTAL CARBON DIOXIDE 24.2 MMOL/L (24-32); eGFR 90 ML/MIN
[2018-10-17 06:00] VITALS: BP 134/76
--- NOTE | 2018-10-17 06:00 | NUR ---
Patient in room PCU 3008. I have received report from PERFECTO COOMBS, and had the opportunity to ask questions and assume patient care.
--- NOTE | 2018-10-17 06:11 | NUR ---
Problems reprioritized. Patient report given, questions answered & plan of care reviewed with Leonila GROVE.
[2018-10-17] MEDS: multivitamins, therapeutics tablet PO SCH (07:15)
[2018-10-17] MEDS: ascorbic acid 500mg tablet PO SCH (07:15)
[2018-10-17] MEDS: vitamin D (cholecalciferol) 1,000 unit tablet PO SCH (07:15)
[2018-10-17] MEDS: clopidogrel 75mg tablet PO SCH (07:15)
[2018-10-17] MEDS: potassium Cl 20 mEq SR tablet PO SCH (07:15)
[2018-10-17] MEDS: pantoprazole 40mg Tablet.DR PO SCH (07:15)
[2018-10-17] MEDS: docusate sod 100mg capsule PO SCH (07:15)
[2018-10-17] MEDS: loratadine 10mg tablet PO SCH (07:16)
[2018-10-17] MEDS: metoprolol tartrate 12.5mg (1/2 tablet) PO SCH (07:16)
[2018-10-17] MEDS: aspirin 81mg tab.chew PO SCH (07:16)
[2018-10-17] MEDS: atorvastatin 10mg tablet PO SCH (07:17)
[2018-10-17] MEDS: magnesium Cl slow-release 64mg tablet PO SCH (07:18)
[2018-10-17] MEDS: K and/or MAG REPLACEMENT MC SCH (07:18)
[2018-10-17] MEDS: High Protein Smoothie Arginine/Glut./Ca2+Bmb (Juven 19.3pkt) 240ml cup PO SCH (07:57)
[2018-10-17] MEDS ORDERED: COL100C PO (08:53)
[2018-10-17] MEDS ORDERED: CLOP75TA35 PO (08:53)
[2018-10-17] MEDS ORDERED: ASPI-1265 PO (08:53)
[2018-10-17] MEDS ORDERED: HYDR-3972 PO (08:53)
[2018-10-17] MEDS ORDERED: ATOR10TA PO (08:53)
[2018-10-17] MEDS ORDERED: METO25TA6 PO (08:53)
--- NOTE | 2018-10-17 09:18 | NUR ---
Initial: Pt s/p CABG x 2. Pt currently on a heart healthy diet with fluctuating documented PO intake averaging 75% with 75-100% of ONS meeting nutrient needs with additional protein for wound healing. [facility] 10/16. Will continue to follow. Recommendations: 1) Continue heart healthy diet 2) high protein strawberry/banana smoothie at breakfast; high protein vanilla shake at lunch; and vanilla Ensure high protein at dinner 3) Continue MVI for wound healing 4) Wt per rx Addendum: 10/17/18 at [address] Amended: Links added.
[2018-10-17 11:00] VITALS: BP 148/76
--- NOTE | 2018-10-17 11:30 | NUR ---
PROVIDED PATIENT WITH DISCHARGE INSTRUCTIONS WELL PRESCRIPTION INFORMATION, AWAITING MAGNOLIA'S BEDSIDE DELIVERY. PATIENT STATES SHE FEELS COMFORTABLE WITH MEDICATION REGIMEN AND FOLLOW UP RECOMMENDATIONS POST-HOSPITALIZATION. IV REMOVED, CATHETER INTACT, MINIMAL BLEEDING WITH CLEAN GAUZE APPLIED AND SECURED WITH TAPE. TELE MONITOR REMOVED AND RETURNED TO PLATFORM MILL SUPERVISOR. NO OTHER QUESTIONS OR CONCERNS PER PATIENT. PATIENT WILL BE ACCOMPANIED DOWN VIA WHEELCHAIR TO GO HOME WITH HER SISTER VIA PRIVATE VEHICLE.
== END 2018-10-17 12:05 | disposition home health service (06) | DRG 234 ==
LOC: MED 3N 14:12 → CICU 2S 14:27 → MED 3N 10-14 19:27 → PCU 3S 10-15 17:12
PROVIDERS: ADMIT Thoracic Surgery (Cardiothoracic Vascular Surgery); ATTEND Thoracic Surgery (Cardiothoracic Vascular Surgery)
PROC: 021009W Bypass Coronary Artery, One Artery from Aorta with Autologous Venous Tissue, Open Approach (ICD-10-PCS; 2018-10-12)
PROC: 06BP4ZZ Excision of Right Saphenous Vein, Percutaneous Endoscopic Approach (ICD-10-PCS; 2018-10-12)
PROC: B24BZZ4 Ultrasonography of Heart with Aorta, Transesophageal (ICD-10-PCS; 2018-10-12)
PROC: 02100Z8 Bypass Coronary Artery, One Artery from Right Internal Mammary, Open Approach (ICD-10-PCS; principal; 2018-10-12 14:56)
PROC: 4A023N7 Measurement of Cardiac Sampling and Pressure, Left Heart, Percutaneous Approach (ICD-10-PCS; 2018-10-13)
PROC: B2111ZZ Fluoroscopy of Multiple Coronary Arteries using Low Osmolar Contrast (ICD-10-PCS; 2018-10-13)
PROC: B2151ZZ Fluoroscopy of Left Heart using Low Osmolar Contrast (ICD-10-PCS; 2018-10-13)
PROC: B2171ZZ Fluoroscopy of Right Internal Mammary Bypass Graft using Low Osmolar Contrast (ICD-10-PCS; 2018-10-13)
DX: I21.4 Non-ST elevation (NSTEMI) myocardial infarction (principal); I25.110 Atherosclerotic heart disease of native coronary artery with unstable angina pectoris; Z82.49 Family history of ischemic heart disease and other diseases of the circulatory system; Z88.2 Allergy status to sulfonamides; Z79.899 Other long term (current) drug therapy; Z79.4 Long term (current) use of insulin
CPT/HCPCS: 0232T; 93312; 93325; 93455; Z7506; Z7508; 36415; 36600; 71045; 80048; 80053; 80061; 82330; 82435; 82803; 82947; 82948; 83735; 84100; 84132; 84295; 85018; 85025; 85027; 85347; 85384; 85610; 85730; 86885; 86900; 86901; 86920; 87070; 93005; 94002; 94003; 94667; 94668; 94760; 97110; 97116; 97162; 97530; A6255; A6257; A6258; A6402; A6449; A7000; A7048; C1751; C1769; C9113; G0378; J0131; J0690; J1265; J1644; J1815; J1940; J2001; J2250; J2270; J2370; J2405; J2440; J2704; J2720; J2795; J3370; J3475; J3480; J3490; J7030; J7120; P9045; Q9967

== ENCOUNTER 2018-11-27 07:01 | Inpatient (IN) | payer BC ==
[2018-11-24 13:58] LABS: BASOPHILS % (AUTO) 0.6 % (0-1); EOSINOPHILS # (AUTO) 0.2 X10'3 (0-0.9); EOSINOPHILS % (AUTO) 4.1 % (0-6); LYMPHOCYTES # (AUTO) 1.8 X10'3 (1.1-4.8); LYMPHOCYTES % (AUTO) 30.6 % (21-51); MEAN CORPUSCULAR HEMOGLOBIN 29.7 PG (27.0-31.0); MEAN CORPUSCULAR HGB CONC 34.3 g/dL (33.0-36.5); MEAN CORPUSCULAR VOLUME 86.5 FL (78-98); MEAN PLATELET VOLUME 9.1 FL (7.4-10.4); MONOCYTES # (AUTO) 0.5 X10'3 (0-0.9); MONOCYTES % (AUTO) 8.8 % (2-12); NEUTROPHILS # (AUTO) 3.2 X10'3 (1.8-7.7); NEUTROPHILS % (AUTO) 55.9 % (42-75); PRE OP HEMATOCRIT 42.2 % (35.0-45.0); PRE OP HEMOGLOBIN 14.5 g/dL (12.0-16.0); PRE OP PLATELET COUNT 188 X10'3 (140-440); RED BLOOD COUNT 4.87 X10'6 (4.20-5.60); RED CELL DISTRIBUTION WIDTH 14.7 % (11.5-14.5)
[2018-11-24 14:01] LABS: CLARITY,URINE CLEAR (Clear); COLOR,URINE YELLOW (Yellow); GLUCOSE, URINE NEGATIVE (Neg); KETONES,URINE NEGATIVE (Neg); LEUKOCYTE ESTERASE ,URINE NEGATIVE (Neg); NITRITES, URINE NEGATIVE (Neg); OCCULT BLOOD,URINE NEGATIVE (Neg); PH,URINE 5.5 (4.8-8.0); PROTEIN,URINE NEGATIVE (Neg); UROBILINOGEN,URINE 0.2 E.U/dL (0.2-1.0)
[2018-11-24 14:07] LABS: UA COLLECTION TYPE CLN CATCH MIDSTREAM
[2018-11-24 14:09] LABS: HEMOGLOBIN A1C 5.2 % (4.5-6.2)
[2018-11-24 14:10] LABS: ALBUMIN/GLOBULIN RATIO 1.1 (1.1-1.5); ALKALINE PHOSPHATASE 81 IU/L (46-116); BLOOD UREA NITROGEN 18 MG/DL (7-18); BUN/CREATININE RATIO 23.1 (6.6-38.0); CALCIUM 9.4 MG/DL (8.5-10.1); CHLORIDE 106 MMOL/L (99-107); CREATININE 0.78 MG/DL (0.40-0.90); PRE OP ALT 16 U/L (30-65); PRE OP ANION GAP 11 (8-16); PRE OP AST 16 U/L (10-37); PRE OP BILIRUB, TOTAL 0.3 MG/DL (0.0-1.0); PRE OP GLUCOSE 99 MG/DL (70-104); PRE OP POTASSIUM 3.8 MMOL/L (3.4-5.1); PRE OP SODIUM 142 MMOL/L (135-145); TOTAL CARBON DIOXIDE 24.7 MMOL/L (24-32); TOTAL PROTEIN 7.6 G/DL (6.4-8.2); eGFR 76 ML/MIN
[2018-11-24 14:21] LABS: PRE OP PROTIME 10.1 SECONDS (9.0-12.0)
[2018-11-27] VITALS (17 sets, daily range): BP systolic 106–147; BP diastolic 70–92
[~2018-11-27] VITALS: Ht 165.1 cm; Wt 86.5 kg
[~2018-11-27 07:01] MED LIST changes: +ASPI-1265 PO; +ATOR10TA PO; +CLOP75TA15 PO; +DOCUMENT DATE & TIME OF BETA-BLOCKER PO ONE; +METO25TA6 PO; -aminocaproic acid 250 MG/1 ML inj. ONE; +ceFAZolin 2gm in dextrose, iso 100 ML IV ONE; +famotidine 20mg tablet PO ONE; -heparin 10,000 units/1 ML INJ ONE; +mupirocin 2% nasal ointment 1gm UD NS ONE; -papaverine 30 mg/ml 2ml inj. ONE; +ringers solution, lacted 1,000 ML IV SCH; +vancomycin inj 1,500 MG in normal saline 300ml IV soln IV ONE
[2018-11-27] MEDS ORDERED: ceFAZolin 1000mg inj ONE (09:09)
[2018-11-27] MEDS ORDERED: sevoflurane 250ml liquid IH ONE (09:18)
[2018-11-27] MEDS ORDERED: fentaNYL/PF 50MCG/1 ML 2ML syringe ONE (09:20)
[2018-11-27] MEDS ORDERED: midazolam 2 mg/2 ml injection ONE (09:20)
[2018-11-27] MEDS ORDERED: ringers solution, lacted 1,000 ML IV SCH (09:52)
[2018-11-27] MEDS ORDERED: morphine 4 MG/ML inj SYRINge IV PRN ×4 (09:55→10:20)
[2018-11-27] MEDS ORDERED: meperidine/PF 25mg/ml syringe IV PRN ×3 (09:55)
[2018-11-27] MEDS ORDERED: ondansetron/PF 4mg/2ml inj IV PRN ×2 (09:55→10:20)
[2018-11-27] MEDS ORDERED: proCHLORperazine 10 MG/2 ml inj IV PRN (09:55)
[2018-11-27] MEDS ORDERED: propofol inj 20 ML IV ONE (10:04)
--- NOTE | 2018-11-27 10:15 | NUR ---
Received from OR via bed, accompanied by Anesthesiologist. Report received. Initial physical assessment done and recorded.
[2018-11-27] MEDS ORDERED: naloxone 0.4 mg/ml inj IV PRN (10:20)
[2018-11-27] MEDS ORDERED: metoclopramide 5 mg/ml inj IV PRN (10:20)
[2018-11-27] MEDS ORDERED: magnesium hydroxide 30ml (MOM) UD suspension PO PRN (10:20)
--- NOTE | 2018-11-27 11:10 | NUR ---
Discharge criteria met, report to receiving floor. Transferred to room in stable condition.
[2018-11-27 11:30] LABS: BASOPHILS % (AUTO) 0.5 % (0-1); EOSINOPHILS # (AUTO) 0.2 X10'3 (0-0.9); EOSINOPHILS % (AUTO) 3.6 % (0-6); HEMATOCRIT 41.8 % (35.0-45.0); HEMOGLOBIN 13.8 g/dl (12.0-16.0); LYMPHOCYTES # (AUTO) 1.8 X10'3 (1.1-4.8); LYMPHOCYTES % (AUTO) 33.2 % (21-51); MEAN CORPUSCULAR HEMOGLOBIN 29.1 PG (27.0-31.0); MEAN CORPUSCULAR HGB CONC 33.1 g/dL (33.0-36.5); MEAN CORPUSCULAR VOLUME 87.8 FL (78-98); MONOCYTES # (AUTO) 0.5 X10'3 (0-0.9); MONOCYTES % (AUTO) 8.6 % (2-12); NEUTROPHILS % (AUTO) 54.1 % (42-75); PLATELET COUNT 143 X10'3 (140-440); RED BLOOD COUNT 4.76 X10'6 (4.20-5.60); RED CELL DISTRIBUTION WIDTH 14.6 % (11.5-14.5); WHITE BLOOD COUNT 5.5 X10'3 (4.5-11.0)
[2018-11-27] MEDS: HYDROcodone/acetaminophen 10/325mg tab PO PRN ×2 (11:32→19:37)
[2018-11-27 11:37] LABS: ALBUMIN 3.5 G/DL (3.4-5.0); ANION GAP 8 (8-16); BLOOD UREA NITROGEN 14 MG/DL (7-18); BUN/CREATININE RATIO 18.9 (6.6-38.0); CALCIUM 9.3 MG/DL (8.5-10.1); CHLORIDE 107 MMOL/L (99-107); CREATININE 0.74 MG/DL (0.40-0.90); GLUCOSE 84 MG/DL (70-104); POTASSIUM 3.7 MMOL/L (3.5-5.1); SODIUM 141 MMOL/L (135-145); TOTAL CARBON DIOXIDE 26.2 MMOL/L (24-32); eGFR 81 ML/MIN
--- NOTE | 2018-11-27 11:41 | NUR ---
Pt arrived to room from recovery. Pt oriented to room. Pt call light in reach.
--- NOTE | 2018-11-27 11:51 | NUR ---
patient is satting 100% on 2L, O2 titrated off
--- NOTE | 2018-11-27 12:15 | NUR ---
assisted patient with use of bed jules. Urinated 200 ml
[2018-11-27] MEDS: ceFAZolin inj. 1,000 MG in dextrose 5%-water 50ml 50 ML IV SCH ×2 (15:56→23:58)
--- NOTE | 2018-11-27 17:11 | NUR ---
Student documentation: I have reviewed and agree with all interventions, assessments performed and documented by Danae RNS. Student Medication Administration: For this medication-pass time frame, all medication were reviewed, dispensed, administered and documented per hospital policy by Danae RNS.
[2018-11-27] MEDS: docusate sod 100mg capsule PO SCH (19:36)
[2018-11-27] MEDS: metoprolol tartrate 12.5mg (1/2 tablet) PO SCH (19:37)
[2018-11-28 03:00] VITALS: BP 105/72
--- NOTE | 2018-11-28 06:36 | NUR ---
Patient in room MED 307. I have received report from Loreto and had the opportunity to ask questions and assume patient care.
[2018-11-28 07:00] VITALS: BP 146/83
[2018-11-28] MEDS: docusate sod 100mg capsule PO SCH (07:05)
[2018-11-28] MEDS: metoprolol tartrate 12.5mg (1/2 tablet) PO SCH (07:05)
[2018-11-28] MEDS: HYDROcodone/acetaminophen 10/325mg tab PO PRN ×2 (07:09→15:35)
[2018-11-28] MEDS ORDERED: clopidogrel 75mg tablet PO SCH (08:00)
[2018-11-28] MEDS ORDERED: aspirin 81mg tab.chew PO SCH (08:00)
[2018-11-28] MEDS ORDERED: atorvastatin 10mg tablet PO SCH (08:00)
[2018-11-28] MEDS ORDERED: enoxaparin 40mg/0.4ml syringe SUBCUT SCH (08:00)
[2018-11-28] MEDS ORDERED: COL100C PO (09:25)
[2018-11-28] MEDS ORDERED: HYDR-3972 PO (09:25)
[2018-11-28 11:30] VITALS: BP 134/83
[2018-11-28 15:30] VITALS: BP 161/88
--- NOTE | 2018-11-28 17:09 | NUR ---
Pt will follow up with Dr Burgess in 4 weeks. She will also see outpatient wound care clinic at [facility]. Her home health RN will be coming to her house tomorrow. Debora and mayte delivered to her bedside. Sternal precautions and dietary restrictions gone over with pt. She verbalizes understanding. Wound vac was delivered at bedside by case finisher. It was applied to pt. Proper seal noted at 125. Discharged via wc in stable condition.
== END 2018-11-28 17:31 | disposition home or self-care (01) | DRG 858 ==
LOC: PAS IN 07:01 → EDSTATUS 09:15 → MED 3N 11:05
PROVIDERS: ADMIT Thoracic Surgery (Cardiothoracic Vascular Surgery); ATTEND Thoracic Surgery (Cardiothoracic Vascular Surgery)
PROC: 0WP80YZ Removal of Other Device from Chest Wall, Open Approach (ICD-10-PCS; 2018-11-27)
PROC: 0JB60ZZ Excision of Chest Subcutaneous Tissue and Fascia, Open Approach (ICD-10-PCS; principal; 2018-11-27 09:18)
DX: T81.41XA Infection following a procedure, superficial incisional surgical site, initial encounter (principal); I25.10 Atherosclerotic heart disease of native coronary artery without angina pectoris; Y83.2 Surgical operation with anastomosis, bypass or graft as the cause of abnormal reaction of the patient, or of later complication, without mention of misadventure at the time of the procedure; I10 Essential (primary) hypertension; B19.20 Unspecified viral hepatitis C without hepatic coma; Z88.2 Allergy status to sulfonamides; Z91.048 Other nonmedicinal substance allergy status; Z82.49 Family history of ischemic heart disease and other diseases of the circulatory system; Z98.891 History of uterine scar from previous surgery; Z95.1 Presence of aortocoronary bypass graft; Z79.82 Long term (current) use of aspirin; Z79.899 Other long term (current) drug therapy; Y92.89 Other specified places as the place of occurrence of the external cause; I25.2 Old myocardial infarction; Z87.891 Personal history of nicotine dependence
CPT/HCPCS: 36415; 71046; 71250; 80048; 80053; 81003; 82948; 83036; 85025; 85576; 85610; 85730; 86885; 86900; 86901; 87070; 87075; 93005; 97116; 97161; A6255; A6449; A7000; G0378; J0690; J1650; J2250; J2704; J3010; J3370; J7030; J7060; J7120

== ENCOUNTER 2018-12-11 07:33 | Emergency (ER) | payer BC ==
[~2018-12-11] VITALS: Ht 165.1 cm; Wt 83.2 kg
[~2018-12-11 07:33] MED LIST changes: +COL100C PO; -DOCUMENT DATE & TIME OF BETA-BLOCKER PO ONE; -ceFAZolin 2gm in dextrose, iso 100 ML IV ONE; -famotidine 20mg tablet PO ONE; -mupirocin 2% nasal ointment 1gm UD NS ONE; -ringers solution, lacted 1,000 ML IV SCH; -vancomycin inj 1,500 MG in normal saline 300ml IV soln IV ONE
[2018-12-11] MEDS ORDERED: ipratropium/albuterol 3ml nebule NEB ONE (08:10)
[2018-12-11] MEDS ORDERED: ketorolac trometh. 30mg/ml inj. IV ONE (08:15)
[2018-12-11 08:35] LABS: BASOPHILS % (AUTO) 0.3 % (0-1); EOSINOPHILS % (AUTO) 0 % (0-6); HEMATOCRIT 42.2 % (35.0-45.0); HEMOGLOBIN 14.1 g/dl (12.0-16.0); LYMPHOCYTES # (AUTO) 1.4 X10'3 (1.1-4.8); LYMPHOCYTES % (AUTO) 11.9 % (21-51); MEAN CORPUSCULAR HEMOGLOBIN 28.7 PG (27.0-31.0); MEAN CORPUSCULAR HGB CONC 33.5 g/dL (33.0-36.5); MEAN CORPUSCULAR VOLUME 85.7 FL (78-98); MEAN PLATELET VOLUME 8.8 FL (7.4-10.4); MONOCYTES # (AUTO) 1.1 X10'3 (0-0.9); NEUTROPHILS # (AUTO) 9.2 X10'3 (1.8-7.7); NEUTROPHILS % (AUTO) 78.8 % (42-75); PLATELET COUNT 180 X10'3 (140-440); RED BLOOD COUNT 4.92 X10'6 (4.20-5.60); RED CELL DISTRIBUTION WIDTH 14.3 % (11.5-14.5); WHITE BLOOD COUNT 11.7 X10'3 (4.5-11.0)
[2018-12-11 08:51] LABS: ALANINE AMINOTRANSFERASE 15 U/L (12-78); ALBUMIN 3.8 G/DL (3.4-5.0); ALKALINE PHOSPHATASE 77 IU/L (46-116); ANION GAP 10 (8-16); ASPARTATE AMINO TRANSFERASE 15 U/L (10-37); BILIRUBIN,TOTAL 0.7 MG/DL (0.1-1.0); BLOOD UREA NITROGEN 10 MG/DL (7-18); BUN/CREATININE RATIO 16.1 (6.6-38.0); CALCIUM 9.6 MG/DL (8.5-10.1); CHLORIDE 103 MMOL/L (99-107); CREATININE 0.62 MG/DL (0.40-0.90); GLUCOSE 114 MG/DL (70-104); POTASSIUM 3.7 MMOL/L (3.5-5.1); SODIUM 135 MMOL/L (135-145); TOTAL CARBON DIOXIDE 22.1 MMOL/L (24-32); TOTAL PROTEIN 7.7 G/DL (6.4-8.2); eGFR > 90 ML/MIN
[2018-12-11 08:52] LABS: D-DIMER 0.69 MG/L FEU (0-0.50)
[2018-12-11] MEDS ORDERED: ALBU8.5H8 IH (10:48)
[2018-12-11] MEDS ORDERED: PRED20TA PO (10:48)
[2018-12-11 10:57] VITALS: BP 145/87
== END 2018-12-11 10:59 | disposition home or self-care (01) ==
LOC: ER 07:34
DX: R07.89 Other chest pain (principal); R06.02 Shortness of breath; I25.10 Atherosclerotic heart disease of native coronary artery without angina pectoris; Z88.2 Allergy status to sulfonamides; Z88.8 Allergy status to other drugs, medicaments and biological substances; Z79.82 Long term (current) use of aspirin; Z79.899 Other long term (current) drug therapy; Z87.891 Personal history of nicotine dependence
CPT/HCPCS: 36415; 71045; 80053; 83735; 83880; 84145; 84484; 85025; 85379; 85610; 93005; 94640; 96374; 99284; J1885

== ENCOUNTER 2018-12-13 14:50 | Inpatient (IN) | payer BC ==
[~2018-12-13] VITALS: Ht 165.1 cm; Wt 83.5 kg
[~2018-12-13 14:50] MED LIST changes: +ALBU8.5H8 IH; +PRED20TA PO
[2018-12-13] MEDS ORDERED: ALBU8.5H8 IH (15:13)
[2018-12-13] MEDS ORDERED: PRED20TA PO (15:13)
[2018-12-13] MEDS ORDERED: DOCU100C41 PO (15:13)
[2018-12-13 15:34] LABS: BASOPHILS % (AUTO) 0.6 % (0-1); EOSINOPHILS % (AUTO) 0 % (0-6); HEMOGLOBIN 13.4 g/dl (12.0-16.0); LYMPHOCYTES # (AUTO) 1.2 X10'3 (1.1-4.8); LYMPHOCYTES % (AUTO) 18.5 % (21-51); MEAN CORPUSCULAR HEMOGLOBIN 28.8 PG (27.0-31.0); MEAN CORPUSCULAR HGB CONC 33.4 g/dL (33.0-36.5); MEAN CORPUSCULAR VOLUME 86.4 FL (78-98); MEAN PLATELET VOLUME 8.7 FL (7.4-10.4); MONOCYTES # (AUTO) 0.4 X10'3 (0-0.9); MONOCYTES % (AUTO) 6.3 % (2-12); NEUTROPHILS # (AUTO) 4.9 X10'3 (1.8-7.7); NEUTROPHILS % (AUTO) 74.6 % (42-75); PLATELET COUNT 220 X10'3 (140-440); RED BLOOD COUNT 4.63 X10'6 (4.20-5.60); RED CELL DISTRIBUTION WIDTH 14.6 % (11.5-14.5); WHITE BLOOD COUNT 6.5 X10'3 (4.5-11.0)
[2018-12-13] MEDS ORDERED: morphine 4 MG/ML inj SYRINge IM ONE (17:05)
[2018-12-13] MEDS ORDERED: ondansetron/PF 4mg/2ml inj IV ONE (17:05)
[2018-12-13] MEDS ORDERED: mag hydrox/Alum hydrox/simeth 30ml oral suspension PO PRN (17:25)
[2018-12-13] MEDS ORDERED: magnesium Cl slow-release 64mg tablet PO PRN (17:25)
[2018-12-13] MEDS ORDERED: morphine 2 MG/ML inj. syringe IV PRN (17:25)
[2018-12-13] MEDS ORDERED: potassium Cl 40MEQ/NS 500ml 500 ML IV PRN ×2 (17:25)
[2018-12-13] MEDS ORDERED: ondansetron/PF 4mg/2ml inj IV PRN (17:25)
[2018-12-13] MEDS ORDERED: HYDROcodone/acetaminophen 5mg/325mg tablet PO PRN (17:25)
[2018-12-13] MEDS ORDERED: bisacodyl 10mg suppository rectal RC PRN (17:25)
[2018-12-13] MEDS ORDERED: magnesium 2GM in 50ml NS 50 ML IV PRN (17:25)
[2018-12-13] MEDS ORDERED: acetaminophen 325mg tablet PO PRN ×2 (17:25)
[2018-12-13] MEDS ORDERED: potassium Cl 20 mEq SR tablet PO PRN (17:25)
[2018-12-13] MEDS ORDERED: magnesium 4gm in 100ml NS 100 ML IV PRN (17:25)
[2018-12-13] MEDS: K and/or MAG REPLACEMENT MC SCH (17:25)
[2018-12-13] MEDS ORDERED: magnesium hydroxide 30ml (MOM) UD suspension PO PRN (17:25)
[2018-12-13] MEDS ORDERED: albuterol 2.5 MG/3 ML nebule NEB PRN (17:35)
[2018-12-13] MEDS ORDERED: vancomycin/NS 1 GM ADD-VANTAGE 250 ML X 1 DOSE IV ONE (17:40)
[2018-12-13] MEDS: piperacillin/tazo 3.375gm/50ml 50 ML IV SCH (18:43)
[2018-12-13] MEDS: normal saline 1000ml 1,000 ML IV SCH (18:43)
[2018-12-13 18:53] LABS: ALBUMIN 3.3 G/DL (3.4-5.0); ANION GAP 12 (8-16); BLOOD UREA NITROGEN 11 MG/DL (7-18); BUN/CREATININE RATIO 21.6 (6.6-38.0); CALCIUM 9.2 MG/DL (8.5-10.1); CHLORIDE 107 MMOL/L (99-107); CREATININE 0.51 MG/DL (0.40-0.90); GLUCOSE 89 MG/DL (70-104); POTASSIUM 3.6 MMOL/L (3.5-5.1); SODIUM 142 MMOL/L (135-145); TOTAL CARBON DIOXIDE 23.2 MMOL/L (24-32); eGFR > 90 ML/MIN
[2018-12-13] MEDS: HYDROcodone/acetaminophen 10/325mg tab PO PRN (18:58)
[2018-12-13 20:10] VITALS: BP 170/89
[2018-12-13] MEDS ORDERED: temazepam 15mg capsule PO PRN (21:00)
[2018-12-13] MEDS ORDERED: hydrALAZINE 20mg/ml inj. IV PRN (22:15)
[2018-12-13] MEDS ORDERED: amLODIPine 5mg tablet PO ONE (22:15)
[2018-12-13] MEDS: morphine 2 MG/ML inj. syringe IV PRN (22:19)
[2018-12-13] MEDS: heparin, porcine 5000 units/ml vial SQ SCH (22:20)
[2018-12-13] MEDS: metoprolol tartrate 12.5mg (1/2 tablet) PO SCH (22:20)
[2018-12-13] MEDS: docusate sod 100mg capsule PO SCH (22:21)
[2018-12-13 23:00] VITALS: BP 120/75
[2018-12-14] VITALS (16 sets, daily range): BP systolic 113–142; BP diastolic 59–80
[2018-12-14] MEDS: normal saline 1000ml 1,000 ML IV SCH ×3 (03:47→23:25)
[2018-12-14 04:50] LABS: BASOPHILS % (AUTO) 0.6 % (0-1); EOSINOPHILS # (AUTO) 0.1 X10'3 (0-0.9); EOSINOPHILS % (AUTO) 1.7 % (0-6); HEMATOCRIT 37.5 % (35.0-45.0); HEMOGLOBIN 12.4 g/dl (12.0-16.0); LYMPHOCYTES % (AUTO) 37.5 % (21-51); MEAN CORPUSCULAR HEMOGLOBIN 28.7 PG (27.0-31.0); MEAN CORPUSCULAR HGB CONC 33.1 g/dL (33.0-36.5); MEAN CORPUSCULAR VOLUME 86.7 FL (78-98); MEAN PLATELET VOLUME 8.8 FL (7.4-10.4); MONOCYTES # (AUTO) 0.5 X10'3 (0-0.9); NEUTROPHILS # (AUTO) 2.6 X10'3 (1.8-7.7); NEUTROPHILS % (AUTO) 50.2 % (42-75); PLATELET COUNT 191 X10'3 (140-440); RED BLOOD COUNT 4.32 X10'6 (4.20-5.60); RED CELL DISTRIBUTION WIDTH 14.6 % (11.5-14.5); WHITE BLOOD COUNT 5.3 X10'3 (4.5-11.0)
[2018-12-14 05:14] LABS: ALANINE AMINOTRANSFERASE 11 U/L (12-78); ALBUMIN 2.9 G/DL (3.4-5.0); ALBUMIN/GLOBULIN RATIO 0.8 (1.1-1.5); ALKALINE PHOSPHATASE 60 IU/L (46-116); ANION GAP 12 (8-16); ASPARTATE AMINO TRANSFERASE 11 U/L (10-37); BILIRUBIN,TOTAL 0.2 MG/DL (0.1-1.0); BLOOD UREA NITROGEN 13 MG/DL (7-18); BUN/CREATININE RATIO 19.1 (6.6-38.0); CALCIUM 8.8 MG/DL (8.5-10.1); CHLORIDE 108 MMOL/L (99-107); CREATININE 0.68 MG/DL (0.40-0.90); GLUCOSE 97 MG/DL (70-104); MAGNESIUM 1.9 MG/DL (1.5-2.4); PHOSPHORUS 4.8 MG/DL (2.3-4.5); POTASSIUM 3.3 MMOL/L (3.5-5.1); SODIUM 142 MMOL/L (135-145); TOTAL CARBON DIOXIDE 21.9 MMOL/L (24-32); TOTAL PROTEIN 6.5 G/DL (6.4-8.2); eGFR 89 ML/MIN
[2018-12-14] MEDS: morphine 2 MG/ML inj. syringe IV PRN ×2 (06:28→19:15)
[2018-12-14] MEDS: vancomycin inj 1,250 MG in normal saline 250ml IV soln 250 ML IV SCH ×2 (07:13→19:00)
[2018-12-14] MEDS: atorvastatin 10mg tablet PO SCH (07:25)
[2018-12-14] MEDS: docusate sod 100mg capsule PO SCH ×2 (07:25→20:12)
[2018-12-14] MEDS: aspirin 81mg tab.chew PO SCH (07:26)
[2018-12-14] MEDS: amLODIPine 5mg tablet PO SCH (07:27)
[2018-12-14] MEDS: metoprolol tartrate 12.5mg (1/2 tablet) PO SCH ×2 (07:28→20:11)
[2018-12-14] MEDS: heparin, porcine 5000 units/ml vial SQ SCH ×2 (07:29→20:11)
[2018-12-14] MEDS: HYDROcodone/acetaminophen 10/325mg tab PO PRN ×2 (07:43→21:32)
[2018-12-14] MEDS: potassium Cl 20 mEq SR tablet PO PRN ×2 (08:38→20:22)
[2018-12-14] MEDS: K and/or MAG REPLACEMENT MC SCH (08:40)
[2018-12-14] MEDS: piperacillin/tazo 3.375gm/50ml 50 ML IV SCH ×2 (08:40)
--- NOTE | 2018-12-14 11:16 | NUR ---
Patient in room PCU 3018. I have received report from Margaret GROVE and had the opportunity to ask questions. The patient has not yet arrived to the ACCE unit.
[2018-12-14] MEDS ORDERED: epiNEPHrine 1 mg/ml inj ONE (11:46)
[2018-12-14] MEDS ORDERED: BUPIVAcaine/PF 2.5 mg/ml (0.25%) 30ml vial ONE (11:46)
[2018-12-14] MEDS ORDERED: LIDOcaine 1% 30ml preserv. free vial ONE (11:46)
[2018-12-14] MEDS ORDERED: ROPIVAcaine 0.5% (5mg/ml) 30ml vial ONE (11:48)
[2018-12-14] MEDS ORDERED: propofol inj 20 ML IV ONE (12:45)
[2018-12-14] MEDS ORDERED: fentaNYL/PF 50MCG/1 ML 2ML syringe ONE (12:45)
[2018-12-14] MEDS ORDERED: midazolam 2 mg/2 ml injection ONE (12:45)
[2018-12-14] MEDS ORDERED: ceFAZolin 1000mg inj ONE ×2 (13:02→13:23)
[2018-12-14] MEDS ORDERED: ringers solution, lacted 1,000 ML IV SCH (13:29)
[2018-12-14] MEDS ORDERED: morphine 4 MG/ML inj SYRINge IV PRN ×2 (13:30)
[2018-12-14] MEDS ORDERED: proCHLORperazine 10 MG/2 ml inj IV PRN (13:30)
[2018-12-14] MEDS ORDERED: ondansetron/PF 4mg/2ml inj IV PRN (13:30)
[2018-12-14] MEDS ORDERED: meperidine/PF 25mg/ml syringe IV PRN ×3 (13:30)
--- NOTE | 2018-12-14 14:16 | NUR ---
Received from OR via , accompanied by Anesthesiologist and report given by Anesthesiolgist. PATIENT ARRIVED ON HOSPITAL BED, A&O X4, STERNAL DRESSING ON PLACE WITH HEMOVAC AND PR[place]NA [place], SCD'S IN PLACE, 22 GAUGE TO RIGHT HAND INFUSING IVF ORDERED. VSS CHARTED, WILL CONTIUNE TO MONITOR.
--- NOTE | 2018-12-14 15:26 | NUR ---
PATIENT TRANSFER CRITERIA MET. REPORT CALLED TO FER GROVE ON ACCE, ALL QUESTIONS AND CONCERNS ADDRESSED. STERNAL DRESSING NOTED WITH PROVENA [place] AND KIN DRAIN IN PLACE, SCD'S IN PLACE PIV TO RIGHT HAND WITH IVF INFUSING ORDERED. TRANSFERRED VIA HOSPITAL BED.
--- NOTE | 2018-12-14 15:30 | NUR ---
Patient arrived to room 316 and oriented to room and call light. Patient alert and oriented times four. Nursing bedside swallow performed, patient swallowing well. Patient ambulated to bathroom with minimal assist.
--- NOTE | 2018-12-14 18:26 | NUR ---
Problems reprioritized. Patient report given, questions answered & plan of care reviewed with Chino RN.
[2018-12-14] MEDS: cefepime 2g/NS 100ml ADVANTAGE 100 ML IV SCH (20:10)
[2018-12-14] MEDS: lactobacillus rhamnosus 10,000 MMU CELLS/CAPSULE PO SCH (20:12)
[2018-12-15 02:00] VITALS: BP 140/76
[2018-12-15] MEDS: morphine 2 MG/ML inj. syringe IV PRN (02:12)
[2018-12-15 05:16] LABS: BASOPHILS % (AUTO) 0.7 % (0-1); EOSINOPHILS # (AUTO) 0.2 X10'3 (0-0.9); EOSINOPHILS % (AUTO) 3.6 % (0-6); HEMATOCRIT 38.7 % (35.0-45.0); HEMOGLOBIN 13.3 g/dl (12.0-16.0); LYMPHOCYTES # (AUTO) 1.1 X10'3 (1.1-4.8); LYMPHOCYTES % (AUTO) 27.4 % (21-51); MEAN CORPUSCULAR HEMOGLOBIN 29.4 PG (27.0-31.0); MEAN CORPUSCULAR HGB CONC 34.4 g/dL (33.0-36.5); MEAN CORPUSCULAR VOLUME 85.4 FL (78-98); MEAN PLATELET VOLUME 8.3 FL (7.4-10.4); MONOCYTES # (AUTO) 0.5 X10'3 (0-0.9); MONOCYTES % (AUTO) 11.9 % (2-12); NEUTROPHILS # (AUTO) 2.4 X10'3 (1.8-7.7); NEUTROPHILS % (AUTO) 56.4 % (42-75); PLATELET COUNT 176 X10'3 (140-440); RED BLOOD COUNT 4.53 X10'6 (4.20-5.60); RED CELL DISTRIBUTION WIDTH 14.4 % (11.5-14.5); WHITE BLOOD COUNT 4.2 X10'3 (4.5-11.0)
[2018-12-15 05:48] LABS: ALANINE AMINOTRANSFERASE 12 U/L (12-78); ALBUMIN 3.1 G/DL (3.4-5.0); ALBUMIN/GLOBULIN RATIO 0.8 (1.1-1.5); ALKALINE PHOSPHATASE 62 IU/L (46-116); ANION GAP 10 (8-16); ASPARTATE AMINO TRANSFERASE 10 U/L (10-37); BILIRUBIN,TOTAL 0.4 MG/DL (0.1-1.0); BLOOD UREA NITROGEN 8 MG/DL (7-18); BUN/CREATININE RATIO 13.1 (6.6-38.0); CALCIUM 8.9 MG/DL (8.5-10.1); CHLORIDE 104 MMOL/L (99-107); CREATININE 0.61 MG/DL (0.40-0.90); GLUCOSE 95 MG/DL (70-104); MAGNESIUM 1.9 MG/DL (1.5-2.4); PHOSPHORUS 3.4 MG/DL (2.3-4.5); POTASSIUM 3.7 MMOL/L (3.5-5.1); SODIUM 139 MMOL/L (135-145); TOTAL CARBON DIOXIDE 24.6 MMOL/L (24-32); TOTAL PROTEIN 6.9 G/DL (6.4-8.2); eGFR > 90 ML/MIN
[2018-12-15] MEDS ORDERED: VANCOMYCIN LEVEL IV ONE ×2 (06:30→18:30)
[2018-12-15 07:00] VITALS: BP 152/84
[2018-12-15] MEDS: heparin, porcine 5000 units/ml vial SQ SCH ×2 (07:50→21:02)
[2018-12-15] MEDS: amLODIPine 5mg tablet PO SCH (07:50)
[2018-12-15] MEDS: docusate sod 100mg capsule PO SCH ×2 (07:51→21:02)
[2018-12-15] MEDS: atorvastatin 10mg tablet PO SCH (07:51)
[2018-12-15] MEDS: metoprolol tartrate 12.5mg (1/2 tablet) PO SCH ×2 (07:51→21:03)
[2018-12-15] MEDS: HYDROcodone/acetaminophen 10/325mg tab PO PRN (07:51)
[2018-12-15] MEDS: aspirin 81mg tab.chew PO SCH (07:51)
[2018-12-15] MEDS: lactobacillus rhamnosus 10,000 MMU CELLS/CAPSULE PO SCH ×2 (07:51→21:02)
[2018-12-15] MEDS: vancomycin inj 1,250 MG in normal saline 250ml IV soln 250 ML IV SCH ×2 (07:52→18:59)
[2018-12-15] MEDS: K and/or MAG REPLACEMENT MC SCH (08:00)
[2018-12-15] MEDS: cefepime 2g/NS 100ml ADVANTAGE 100 ML IV SCH ×2 (10:10→21:00)
--- NOTE | 2018-12-15 10:23 | NUR ---
The maxipime was late due to waiting on the med from pharmacy.
[2018-12-15] MEDS: normal saline 1000ml 1,000 ML IV SCH ×2 (10:24→14:06)
[2018-12-15] MEDS: oxyCODONE IR 5mg (immed. release) tablet PO PRN ×3 (10:40→18:50)
[2018-12-15 11:00] VITALS: BP 141/88
--- NOTE | 2018-12-15 13:40 | NUR ---
Patient c/o pain 8/10 at incision site, radiating to left chest and left lung. Unable to give pain meds at this time, to early. Called and spoke with Morgan POLLARD. New orders noted. Patient up to the bathroom with SBA. Will continue to monitor closely.
[2018-12-15] MEDS: ketorolac tromethamine 15mg/ml inj. IV PRN ×2 (14:07→21:02)
[2018-12-15 15:00] VITALS: BP 122/79
--- NOTE | 2018-12-15 18:16 | NUR ---
Problems reprioritized. Patient report given, questions answered & plan of care reviewed with South RN.
[2018-12-16] MEDS: oxyCODONE IR 5mg (immed. release) tablet PO PRN ×4 (02:51→22:36)
[2018-12-16 05:23] LABS: ALANINE AMINOTRANSFERASE 12 U/L (12-78); ALBUMIN 2.5 G/DL (3.4-5.0); ALBUMIN/GLOBULIN RATIO 0.7 (1.1-1.5); ALKALINE PHOSPHATASE 55 IU/L (46-116); ANION GAP 10 (8-16); ASPARTATE AMINO TRANSFERASE 19 U/L (10-37); BILIRUBIN,TOTAL 0.3 MG/DL (0.1-1.0); BLOOD UREA NITROGEN 11 MG/DL (7-18); BUN/CREATININE RATIO 17.2 (6.6-38.0); CALCIUM 8.7 MG/DL (8.5-10.1); CHLORIDE 106 MMOL/L (99-107); CREATININE 0.64 MG/DL (0.40-0.90); GLUCOSE 94 MG/DL (70-104); PHOSPHORUS 3.2 MG/DL (2.3-4.5); POTASSIUM 3.5 MMOL/L (3.5-5.1); SODIUM 137 MMOL/L (135-145); TOTAL CARBON DIOXIDE 21.3 MMOL/L (24-32); TOTAL PROTEIN 6.1 G/DL (6.4-8.2); eGFR > 90 ML/MIN
[2018-12-16] MEDS: normal saline 1000ml 1,000 ML IV SCH ×2 (05:25→15:25)
[2018-12-16 06:00] VITALS: BP 131/81
[2018-12-16] MEDS: heparin, porcine 5000 units/ml vial SQ SCH ×2 (07:31→20:21)
[2018-12-16] MEDS: cefepime 2g/NS 100ml ADVANTAGE 100 ML IV SCH ×2 (07:31→20:00)
[2018-12-16] MEDS: aspirin 81mg tab.chew PO SCH (07:32)
[2018-12-16] MEDS: amLODIPine 5mg tablet PO SCH (07:32)
[2018-12-16] MEDS: metoprolol tartrate 12.5mg (1/2 tablet) PO SCH ×2 (07:32→20:22)
[2018-12-16] MEDS: lactobacillus rhamnosus 10,000 MMU CELLS/CAPSULE PO SCH ×2 (07:32→20:21)
[2018-12-16] MEDS: docusate sod 100mg capsule PO SCH ×2 (07:32→20:00)
[2018-12-16] MEDS: atorvastatin 10mg tablet PO SCH (07:32)
[2018-12-16] MEDS: ketorolac tromethamine 15mg/ml inj. IV PRN ×2 (07:32→14:22)
[2018-12-16 07:58] LABS: BASOPHILS % (AUTO) 0.7 % (0-1); EOSINOPHILS # (AUTO) 0.4 X10'3 (0-0.9); EOSINOPHILS % (AUTO) 7.2 % (0-6); HEMATOCRIT 37.7 % (35.0-45.0); HEMOGLOBIN 12.6 g/dl (12.0-16.0); LYMPHOCYTES # (AUTO) 1.2 X10'3 (1.1-4.8); LYMPHOCYTES % (AUTO) 21.2 % (21-51); MEAN CORPUSCULAR HEMOGLOBIN 28.7 PG (27.0-31.0); MEAN CORPUSCULAR HGB CONC 33.5 g/dL (33.0-36.5); MEAN CORPUSCULAR VOLUME 85.7 FL (78-98); MEAN PLATELET VOLUME 8.3 FL (7.4-10.4); MONOCYTES # (AUTO) 0.6 X10'3 (0-0.9); MONOCYTES % (AUTO) 10.8 % (2-12); NEUTROPHILS # (AUTO) 3.3 X10'3 (1.8-7.7); NEUTROPHILS % (AUTO) 60.1 % (42-75); PLATELET COUNT 175 X10'3 (140-440); RED CELL DISTRIBUTION WIDTH 14.3 % (11.5-14.5); WHITE BLOOD COUNT 5.6 X10'3 (4.5-11.0)
[2018-12-16] MEDS: K and/or MAG REPLACEMENT MC SCH (08:00)
[2018-12-16 11:00] VITALS: BP 132/82
[2018-12-16 15:00] VITALS: BP 120/75
[2018-12-16 19:00] VITALS: BP 154/88
[2018-12-16 23:00] VITALS: BP 141/81
[2018-12-17] MEDS: normal saline 1000ml 1,000 ML IV SCH ×3 (01:25→23:10)
[2018-12-17 03:00] VITALS: BP 139/88
[2018-12-17] MEDS: oxyCODONE IR 5mg (immed. release) tablet PO PRN ×4 (03:56→17:42)
[2018-12-17] MEDS: ketorolac tromethamine 15mg/ml inj. IV PRN ×2 (04:36→19:43)
[2018-12-17 06:00] VITALS: BP 127/62
[2018-12-17 06:37] LABS: BASOPHILS % (AUTO) 0.3 % (0-1); EOSINOPHILS # (AUTO) 0.5 X10'3 (0-0.9); EOSINOPHILS % (AUTO) 9.4 % (0-6); HEMATOCRIT 34.7 % (35.0-45.0); HEMOGLOBIN 11.7 g/dl (12.0-16.0); LYMPHOCYTES # (AUTO) 1.3 X10'3 (1.1-4.8); LYMPHOCYTES % (AUTO) 23.4 % (21-51); MEAN CORPUSCULAR HEMOGLOBIN 28.9 PG (27.0-31.0); MEAN CORPUSCULAR HGB CONC 33.7 g/dL (33.0-36.5); MEAN CORPUSCULAR VOLUME 85.8 FL (78-98); MEAN PLATELET VOLUME 8.4 FL (7.4-10.4); MONOCYTES # (AUTO) 0.5 X10'3 (0-0.9); MONOCYTES % (AUTO) 9.7 % (2-12); NEUTROPHILS # (AUTO) 3.2 X10'3 (1.8-7.7); NEUTROPHILS % (AUTO) 57.2 % (42-75); PLATELET COUNT 172 X10'3 (140-440); RED BLOOD COUNT 4.04 X10'6 (4.20-5.60); WHITE BLOOD COUNT 5.6 X10'3 (4.5-11.0)
[2018-12-17 06:55] LABS: ALANINE AMINOTRANSFERASE 13 U/L (12-78); ALBUMIN 2.7 G/DL (3.4-5.0); ALBUMIN/GLOBULIN RATIO 0.7 (1.1-1.5); ALKALINE PHOSPHATASE 59 IU/L (46-116); ANION GAP 8 (8-16); ASPARTATE AMINO TRANSFERASE 13 U/L (10-37); BILIRUBIN,TOTAL 0.3 MG/DL (0.1-1.0); BLOOD UREA NITROGEN 10 MG/DL (7-18); BUN/CREATININE RATIO 14.9 (6.6-38.0); CALCIUM 8.8 MG/DL (8.5-10.1); CHLORIDE 106 MMOL/L (99-107); CREATININE 0.67 MG/DL (0.40-0.90); GLUCOSE 99 MG/DL (70-104); MAGNESIUM 1.9 MG/DL (1.5-2.4); PHOSPHORUS 3.2 MG/DL (2.3-4.5); POTASSIUM 3.2 MMOL/L (3.5-5.1); SODIUM 138 MMOL/L (135-145); TOTAL CARBON DIOXIDE 23.7 MMOL/L (24-32); TOTAL PROTEIN 6.4 G/DL (6.4-8.2); eGFR 90 ML/MIN
[2018-12-17] MEDS ORDERED: potassium Cl 40MEQ/NS 500ml 500 ML IV PRN ×2 (07:25)
[2018-12-17] MEDS ORDERED: potassium Cl 20 mEq SR tablet PO PRN (07:25)
[2018-12-17] MEDS: K and/or MAG REPLACEMENT MC SCH ×2 (08:00)
[2018-12-17] MEDS: docusate sod 100mg capsule PO SCH ×2 (08:00→19:45)
[2018-12-17] MEDS: heparin, porcine 5000 units/ml vial SQ SCH ×2 (08:00→19:44)
[2018-12-17] MEDS: magnesium Cl slow-release 64mg tablet PO SCH ×2 (08:05→19:44)
[2018-12-17] MEDS: metoprolol tartrate 12.5mg (1/2 tablet) PO SCH ×2 (08:05→19:46)
[2018-12-17] MEDS: atorvastatin 10mg tablet PO SCH (08:05)
[2018-12-17] MEDS: potassium Cl 20 mEq SR tablet PO PRN ×3 (08:06→17:00)
[2018-12-17] MEDS: amLODIPine 5mg tablet PO SCH (08:06)
[2018-12-17] MEDS: aspirin 81mg tab.chew PO SCH (08:06)
[2018-12-17] MEDS: lactobacillus rhamnosus 10,000 MMU CELLS/CAPSULE PO SCH ×2 (08:06→19:45)
[2018-12-17] MEDS: cefepime 2g/NS 100ml ADVANTAGE 100 ML IV SCH (08:07)
[2018-12-17] MEDS: gabapentin 100mg capsule PO SCH ×3 (09:41→23:08)
[2018-12-17 11:00] VITALS: BP 125/90
[2018-12-17] MEDS: piperacillin/tazo 4.5gm/100ml 100 ML IV SCH ×2 (13:26→20:21)
[2018-12-17 15:00] VITALS: BP 126/73
[2018-12-17 18:00] VITALS: BP 138/84
--- NOTE | 2018-12-17 18:25 | NUR ---
Patient in room MED 316. I have received report from Leonila GROVE and had the opportunity to ask questions and assume patient care.
[2018-12-17] MEDS ORDERED: VANCOMYCIN LEVEL IV ONE (18:30)
[2018-12-17 22:00] VITALS: BP 124/65
[2018-12-18 02:00] VITALS: BP 118/63
[2018-12-18] MEDS: oxyCODONE IR 5mg (immed. release) tablet PO PRN ×4 (02:03→22:26)
[2018-12-18] MEDS: ketorolac tromethamine 15mg/ml inj. IV PRN ×2 (04:26→20:34)
[2018-12-18] MEDS: piperacillin/tazo 4.5gm/100ml 100 ML IV SCH ×3 (04:27→20:31)
[2018-12-18 05:19] LABS: BASOPHILS % (AUTO) 0.8 % (0-1); EOSINOPHILS # (AUTO) 0.6 X10'3 (0-0.9); EOSINOPHILS % (AUTO) 11.7 % (0-6); HEMATOCRIT 34.6 % (35.0-45.0); HEMOGLOBIN 11.9 g/dl (12.0-16.0); LYMPHOCYTES # (AUTO) 1.3 X10'3 (1.1-4.8); LYMPHOCYTES % (AUTO) 25.5 % (21-51); MEAN CORPUSCULAR HEMOGLOBIN 29.3 PG (27.0-31.0); MEAN CORPUSCULAR HGB CONC 34.4 g/dL (33.0-36.5); MEAN CORPUSCULAR VOLUME 85.1 FL (78-98); MEAN PLATELET VOLUME 8.7 FL (7.4-10.4); MONOCYTES # (AUTO) 0.6 X10'3 (0-0.9); NEUTROPHILS # (AUTO) 2.6 X10'3 (1.8-7.7); PLATELET COUNT 184 X10'3 (140-440); RED BLOOD COUNT 4.07 X10'6 (4.20-5.60); RED CELL DISTRIBUTION WIDTH 14.3 % (11.5-14.5); WHITE BLOOD COUNT 5.2 X10'3 (4.5-11.0)
[2018-12-18 05:52] LABS: ALANINE AMINOTRANSFERASE 14 U/L (12-78); ALBUMIN 2.7 G/DL (3.4-5.0); ALBUMIN/GLOBULIN RATIO 0.7 (1.1-1.5); ALKALINE PHOSPHATASE 56 IU/L (46-116); ANION GAP 8 (8-16); ASPARTATE AMINO TRANSFERASE 12 U/L (10-37); BILIRUBIN,TOTAL 0.2 MG/DL (0.1-1.0); BLOOD UREA NITROGEN 7 MG/DL (7-18); BUN/CREATININE RATIO 9.7 (6.6-38.0); CALCIUM 8.9 MG/DL (8.5-10.1); CHLORIDE 110 MMOL/L (99-107); CREATININE 0.72 MG/DL (0.40-0.90); GLUCOSE 98 MG/DL (70-104); MAGNESIUM 2.1 MG/DL (1.5-2.4); PHOSPHORUS 4.1 MG/DL (2.3-4.5); POTASSIUM 3.7 MMOL/L (3.5-5.1); SODIUM 142 MMOL/L (135-145); TOTAL CARBON DIOXIDE 24.3 MMOL/L (24-32); TOTAL PROTEIN 6.4 G/DL (6.4-8.2); eGFR 83 ML/MIN
[2018-12-18 06:00] VITALS: BP 142/80
--- NOTE | 2018-12-18 06:41 | NUR ---
Patient in room MED 316. I have received report from Alethea GROVE and had the opportunity to ask questions and assume patient care.
--- NOTE | 2018-12-18 06:44 | NUR ---
Problems reprioritized. Patient report given, questions answered & plan of care reviewed with Anisa GROVE.
--- NOTE | 2018-12-18 07:07 | NUR ---
Called Morgan Baltazar to notify him that the patient's wound vac output is dark red and appears changed since yesterday (per broker in charge and patient as well). Also notified them that the canister appears full, and that per noc shift RNs, a couple hours ago the wound vac was not suctioning properly so they reinforced the tape/edges and that it appears to be suctioning properly now. Morgan stated that they will be on the floor in just a few minutes to assess patient. Addendum: 12/18/18 at 1823 by Anisa Scanlon RN Morgan and Dr Burgess were not too concerned about the appearance of the output, but did have Bruce with wound care change the wound vac entirely. She now has a fresh wound vac in place, and will go home with wound vac probably tomorrow.
[2018-12-18] MEDS: normal saline 1000ml 1,000 ML IV SCH ×2 (07:25→17:35)
[2018-12-18] MEDS: atorvastatin 10mg tablet PO SCH (07:36)
[2018-12-18] MEDS: lactobacillus rhamnosus 10,000 MMU CELLS/CAPSULE PO SCH ×2 (07:36→20:30)
[2018-12-18] MEDS: amLODIPine 5mg tablet PO SCH (07:36)
[2018-12-18] MEDS: gabapentin 100mg capsule PO SCH ×3 (07:36→20:30)
[2018-12-18] MEDS: aspirin 81mg tab.chew PO SCH (07:36)
[2018-12-18] MEDS: potassium Cl 20 mEq SR tablet PO PRN ×2 (07:37→15:33)
[2018-12-18] MEDS: metoprolol tartrate 12.5mg (1/2 tablet) PO SCH ×2 (07:37→20:31)
[2018-12-18] MEDS: K and/or MAG REPLACEMENT MC SCH ×2 (07:39)
[2018-12-18] MEDS: heparin, porcine 5000 units/ml vial SQ SCH ×2 (07:39→20:00)
[2018-12-18] MEDS: docusate sod 100mg capsule PO SCH ×2 (07:39→20:00)
[2018-12-18] MEDS: magnesium Cl slow-release 64mg tablet PO SCH ×2 (07:40→20:31)
--- NOTE | 2018-12-18 08:00 | NUR ---
Replacing K to 4.[address] Burgess.
--- NOTE | 2018-12-18 14:12 | NUR ---
Initial: patient presented to ED with pain and post-op complication, patient is s/p CABG two months ago. This visit patient is s/p sternal debridement on 12/14. Per ED note patient had been hospitalized three weeks ago for external wound infection. Appetite is good, patient ate 100% this breakfast and eating 75% average of heart healthy meals. Patient's diet recently changed to regular by MD while RD was with patient, patient given written high protein education diet handout with verbal review. Patient agrees to double eggs and yogurt with each lunch. Recommend 1. continue regular diet 2. double eggs with breakfast and yogurt each lunch for additional protein 3. wt per rx Addendum: 12/18/18 at [address] Amended: Links added.
[2018-12-18 15:00] VITALS: BP 144/77
--- NOTE | 2018-12-18 15:18 | NUR ---
WOUND VAC EDUCATION PROVIDED BY WOUND CARE 1. Patient instructed to call the Wound Center or their Home Health Agency immediately if: * They notice a change in the color or amount of the fluid in the canister. * Their wound looks more red than usual or has a foul smell. * The skin around their wound looks reddened or irritated. * The dressing feels loose or appears to be loose. * They experience any increase or changes in their pain. * The alarm will not turn off. 2. Patient instructed that they should not be disconnected from suction for more than 2 hours at a time. * If they are not able to get the suction back on, they need to remove the dressing and take all of the foam out of the wound. * Then moisten sterile gauze with normal saline and place on/in the wound. * Change the dressing once a day until arrangements have been made to replace the wound vac dressing. 3. Patient instructed to turn the wound vac machine OFF and call 911 or go to the ED immediately if their canister fills rapidly with blood. 4. If any of these occur while in the hospital tell a nurse immediately. Addendum: 12/18/18 at 1544 by Kusum Sanchez RN Amended: Links added.
--- NOTE | 2018-12-18 15:37 | NUR ---
RECOMMEND: 1. Daily bathing with no rinse skin cleanser. 2. Cream/Lotion to be applied to skin after bathing. 3. Wound VAC to sternal wound with routine dressing changes. Settings 125mmHg, low, continuous Addendum: 12/18/18 at 1544 by Kusum Sanchez RN Amended: Links added.
[2018-12-18 18:00] VITALS: BP 136/80
--- NOTE | 2018-12-18 18:00 | NUR ---
Patient in room MED 316. I have received report from Anisa GROVE and had the opportunity to ask questions and assume patient care.
--- NOTE | 2018-12-18 18:22 | NUR ---
Problems reprioritized. Patient report given, questions answered & plan of care reviewed with Alethea GROVE.
[2018-12-18 22:00] VITALS: BP 131/72
[2018-12-19 02:00] VITALS: BP 132/76
[2018-12-19 03:01] LABS: BASOPHILS # (AUTO) 0.1 X10'3 (0-0.2); BASOPHILS % (AUTO) 1.3 % (0-1); EOSINOPHILS # (AUTO) 0.5 X10'3 (0-0.9); EOSINOPHILS % (AUTO) 10.1 % (0-6); HEMATOCRIT 34.8 % (35.0-45.0); HEMOGLOBIN 11.8 g/dl (12.0-16.0); LYMPHOCYTES # (AUTO) 1.4 X10'3 (1.1-4.8); LYMPHOCYTES % (AUTO) 27.4 % (21-51); MEAN CORPUSCULAR HEMOGLOBIN 28.9 PG (27.0-31.0); MEAN CORPUSCULAR VOLUME 84.8 FL (78-98); MEAN PLATELET VOLUME 8.3 FL (7.4-10.4); MONOCYTES # (AUTO) 0.5 X10'3 (0-0.9); MONOCYTES % (AUTO) 9.6 % (2-12); NEUTROPHILS # (AUTO) 2.6 X10'3 (1.8-7.7); NEUTROPHILS % (AUTO) 51.6 % (42-75); PLATELET COUNT 174 X10'3 (140-440); RED CELL DISTRIBUTION WIDTH 14.6 % (11.5-14.5)
[2018-12-19 03:15] LABS: ALANINE AMINOTRANSFERASE 13 U/L (12-78); ALBUMIN 2.8 G/DL (3.4-5.0); ALBUMIN/GLOBULIN RATIO 0.8 (1.1-1.5); ALKALINE PHOSPHATASE 59 IU/L (46-116); ANION GAP 8 (8-16); ASPARTATE AMINO TRANSFERASE 12 U/L (10-37); BILIRUBIN,TOTAL 0.2 MG/DL (0.1-1.0); BLOOD UREA NITROGEN 12 MG/DL (7-18); BUN/CREATININE RATIO 15.2 (6.6-38.0); CALCIUM 9.1 MG/DL (8.5-10.1); CHLORIDE 107 MMOL/L (99-107); CREATININE 0.79 MG/DL (0.40-0.90); GLUCOSE 105 MG/DL (70-104); MAGNESIUM 2.1 MG/DL (1.5-2.4); POTASSIUM 3.7 MMOL/L (3.5-5.1); SODIUM 140 MMOL/L (135-145); TOTAL CARBON DIOXIDE 25.5 MMOL/L (24-32); TOTAL PROTEIN 6.4 G/DL (6.4-8.2); eGFR 75 ML/MIN
[2018-12-19] MEDS: normal saline 1000ml 1,000 ML IV SCH (03:25)
[2018-12-19] MEDS: piperacillin/tazo 4.5gm/100ml 100 ML IV SCH (04:23)
[2018-12-19] MEDS: ketorolac tromethamine 15mg/ml inj. IV PRN (04:33)
[2018-12-19 06:00] VITALS: BP 144/80
--- NOTE | 2018-12-19 06:26 | NUR ---
Problems reprioritized. Patient report given, questions answered & plan of care reviewed with Leonila GROVE.
[2018-12-19] MEDS ORDERED: OXYC-658 PO (07:04)
[2018-12-19] MEDS ORDERED: GABA-530 PO (07:04)
[2018-12-19] MEDS: lactobacillus rhamnosus 10,000 MMU CELLS/CAPSULE PO SCH (07:31)
[2018-12-19] MEDS: magnesium Cl slow-release 64mg tablet PO SCH (07:32)
[2018-12-19] MEDS: aspirin 81mg tab.chew PO SCH (07:32)
[2018-12-19] MEDS: gabapentin 100mg capsule PO SCH (07:33)
[2018-12-19] MEDS: atorvastatin 10mg tablet PO SCH (07:33)
[2018-12-19] MEDS: amLODIPine 5mg tablet PO SCH (07:33)
[2018-12-19 07:35] VITALS: BP_SYST 146
[2018-12-19] MEDS: metoprolol tartrate 12.5mg (1/2 tablet) PO SCH (07:35)
[2018-12-19] MEDS: oxyCODONE IR 5mg (immed. release) tablet PO PRN (07:36)
[2018-12-19] MEDS: heparin, porcine 5000 units/ml vial SQ SCH (08:00)
[2018-12-19] MEDS: docusate sod 100mg capsule PO SCH (08:00)
[2018-12-19] MEDS: K and/or MAG REPLACEMENT MC SCH (08:00)
--- NOTE | 2018-12-19 09:30 | NUR ---
Student documentation: I have reviewed and agree with all interventions, assessments performed and documented by LEATHA, STUDENT NURSE.
--- NOTE | 2018-12-19 10:30 | NUR ---
PROVIDED PATIENT WITH DISCHARGE INSTRUCTIONS WELL NEW PRESCRIPTION INFORMATION AND INSTRUCTIONS. WOUND VAC DRESSING TO MEDIAL CHEST CLEAN DRY AND INTACT. RN SWITCHED WOUND VAC FROM [facility] CAN[facility] TO HOME PORTABLE CANISTER AT BEDSIDE. SUCTION SET TO DEFAULT OF 125MMHG. PICC LINE FLUSHED WITH 20CC NS AND CAPS APPLIED TO ENDS OF ALL PORTS. PICC DRESSING CLEAN, DRY AND INTACT WITH NO S/S OF INFECTION. PATIENT REPORTS 2/10 PAIN AND NO CONCERNS AT THIS TIME. MEDICATIONS DELIVERED BY PARTIDA BEDSIDE. PATIENT'S FAMILY MEMBER PRESENT AT BEDSIDE WHILE INSTRUCTIONS WERE GIVEN FOR PATIENT TO CALL AND MAKE AN APPOINTMENT WITH DR. [facility]. NUMBERS PROVIDED TO PATIENT FOR BOTH. ALL BELONGINGS ACCOUNTED FOR AND PACKED UP TO GO HOME WITH PATIENT VIA PRIVATE VEHICLE.
== END 2018-12-19 11:05 | disposition home health service (06) | DRG 857 ==
LOC: ER 14:50 → PCU 3S 20:43 → CMPBEDREQ 23:44 → MED 3N 12-14 13:55
PROVIDERS: ADMIT Family Medicine; ATTEND Family Medicine
PROC: 0KXH0ZZ Transfer Right Thorax Muscle, Open Approach (ICD-10-PCS; 2018-12-14)
PROC: 0KXJ0ZZ Transfer Left Thorax Muscle, Open Approach (ICD-10-PCS; 2018-12-14)
PROC: 0JB60ZZ Excision of Chest Subcutaneous Tissue and Fascia, Open Approach (ICD-10-PCS; principal; 2018-12-14 12:41)
PROC: 05HY33Z Insertion of Infusion Device into Upper Vein, Percutaneous Approach (ICD-10-PCS; 2018-12-18)
DX: T81.41XA Infection following a procedure, superficial incisional surgical site, initial encounter (principal); S22.20XA Unspecified fracture of sternum, initial encounter for closed fracture; T81.31XA Disruption of external operation (surgical) wound, not elsewhere classified, initial encounter; I10 Essential (primary) hypertension; I25.111 Atherosclerotic heart disease of native coronary artery with angina pectoris with documented spasm; I25.2 Old myocardial infarction; B99.8 Other infectious disease; Y83.2 Surgical operation with anastomosis, bypass or graft as the cause of abnormal reaction of the patient, or of later complication, without mention of misadventure at the time of the procedure; M85.80 Other specified disorders of bone density and structure, unspecified site; Y83.8 Other surgical procedures as the cause of abnormal reaction of the patient, or of later complication, without mention of misadventure at the time of the procedure; Z79.02 Long term (current) use of antithrombotics/antiplatelets; Z80.0 Family history of malignant neoplasm of digestive organs; Z82.3 Family history of stroke; Z82.49 Family history of ischemic heart disease and other diseases of the circulatory system; Z87.891 Personal history of nicotine dependence; Z95.1 Presence of aortocoronary bypass graft; Z98.82 Breast implant status; Z88.2 Allergy status to sulfonamides; Z79.82 Long term (current) use of aspirin; Z79.899 Other long term (current) drug therapy; Y92.89 Other specified places as the place of occurrence of the external cause
CPT/HCPCS: 96372; 96374; 99285; Z7506; 36415; 71045; 71250; 80048; 80053; 80202; 83735; 83880; 84100; 84484; 85025; 85610; 87040; 87070; 87077; 87186; 93005; 94760; A7000; G0378; J0171; J0690; J0692; J1644; J1885; J2175; J2250; J2270; J2405; J2543; J2704; J2795; J3010; J3370; J3490; J7030; J7120

== ENCOUNTER 2018-12-21 08:52 | Day surgery (SDC) | payer BC ==
[~2018-12-21 08:52] MED LIST changes: -COL100C PO; +DOCU100C41 PO; +GABA-530 PO; +OXYC-658 PO; -PRED20TA PO
[2018-12-21] MEDS ORDERED: LIDOcaine/PRILOcaine 5gm cream TP ONE (09:53)
[2018-12-21] MEDS ORDERED: [UNRECOGNIZED DRUG - CODE] (10:48)
--- NOTE | 2018-12-21 11:00 | NUR ---
Patient ambulated independently from [facility] accompanied by her sister and was admitted to outpatient wound care for physician visit with Kashmir Thurman MD. Dressing removed, wound cleansed and Emla cream applied per order. New patient assessment completed with review of patient's medical history and current medication list. 1020 - Dr. Thurman at bedside accompanied by RN. Wound assessed, time out performed by MD/RN. Wound debrided as detailed in the physician progress/procedure note. Plan of care discussed with patient. Dressings placed per MD orders. Patient instructed on the signs and symptoms of infection and to call the Wound Center if any occur or to go to the ED if we are closed: Increased pain in wound Increase in drainage from the wound Redness in the skin surrounding the wound Bleeding from the wound Temperature of 101 or greater Patient instructed that the weight of their body puts a large amount of pressure on their wounds. This pressure keeps the new tissue from growing and inhibits new blood vessels from forming. Explained that, if they continue to bear weight on a body part that has a wound, the time it takes to heal the wound increases, the wound may get worse or the wound may not heal at all. Patient verbalized understanding of all discharge instructions and plan of care and ambulated independently accompanied by her sister out to [facility] in stable condition with no sign or symptom of distress at time of discharge.
== END 2018-12-21 11:10 | disposition home or self-care (01) ==
LOC: WOUND CARE 08:52
PROVIDERS: ATTEND Surgery
DX: T81.89XA Other complications of procedures, not elsewhere classified, initial encounter (principal); L98.492 Non-pressure chronic ulcer of skin of other sites with fat layer exposed; I25.10 Atherosclerotic heart disease of native coronary artery without angina pectoris; I10 Essential (primary) hypertension; I25.2 Old myocardial infarction; G89.29 Other chronic pain; Z79.02 Long term (current) use of antithrombotics/antiplatelets; Z79.82 Long term (current) use of aspirin; Z86.19 Personal history of other infectious and parasitic diseases; Z87.891 Personal history of nicotine dependence; Z95.1 Presence of aortocoronary bypass graft; Z79.899 Other long term (current) drug therapy; Y83.8 Other surgical procedures as the cause of abnormal reaction of the patient, or of later complication, without mention of misadventure at the time of the procedure
CPT/HCPCS: 97597; A6449; A6021; A6206

== ENCOUNTER 2018-12-25 08:45 | Day surgery (SDC) | payer BC ==
[~2018-12-25 08:45] MED LIST changes: +[UNRECOGNIZED DRUG - CODE]
[2018-12-25] MEDS ORDERED: LIDOcaine/PRILOcaine 5gm cream TP ONE (09:41)
--- NOTE | 2018-12-25 14:52 | NUR ---
Patient ambulated independently from [facility] and was admitted to outpatient wound care for physician visit with Kashmir Thurman MD. Dressing removed, wound cleansed and Emla cream applied per order. Patient assessed for changes in conditions, medications and medical history. Dr. Thurman at bedside accompanied by RN. Wound assessed, time out performed by MD/RN. Wound debrided as detailed in the physician progress/procedure note. Plan of care discussed with patient. Dressings placed per MD orders. Patient instructed on the signs and symptoms of infection and to call the Wound Center if any occur or to go to the ED if we are closed: Increased pain in wound Increase in drainage from the wound Redness in the skin surrounding the wound Bleeding from the wound Temperature of 101 or greater Pt instructed that they should not be disconnected from suction for more than 2 hours at a time. If they are not able to get the suction back on they need to remove the dressing and take all of the foam out of the wound, place hydrogel gauze on/in the wound, and change the dressing daily until someone can replace the dressing. Pt instructed to call the Wound Center or their Home Health Agency immediately if they notice a change in the color or amount of the fluid in the canister, their wound looks more red than usual or has a foul smell, the skin around their wound looks reddened or irritated, the dressing feels or appears loose, they experience pain or the alarm will not turn off. Pt instructed to call 911 or go to the ED if their canister fills rapidly with blood. Patient instructed that the weight of their body puts a large amount of pressure on their wounds. This pressure keeps the new tissue from growing and inhibits new blood vessels from forming. Explained that, if they continue to bear weight on a body part that has a wound, the time it takes to heal the wound increases, the wound may get worse or the wound may not heal at all. Patient verbalized understanding of all discharge instructions and plan of care and ambulated independently out to [facility] in stable condition with no sign or symptom of distress at time of discharge. Addendum: 12/25/18 at 1455 by Ermelinda Hernandez RN Amended: Links added.
== END 2018-12-25 11:40 | disposition home or self-care (01) ==
LOC: WOUND CARE 08:45
PROVIDERS: ATTEND Surgery
DX: T81.89XD Other complications of procedures, not elsewhere classified, subsequent encounter (principal); L98.492 Non-pressure chronic ulcer of skin of other sites with fat layer exposed; I25.10 Atherosclerotic heart disease of native coronary artery without angina pectoris; I10 Essential (primary) hypertension; I25.2 Old myocardial infarction; G89.29 Other chronic pain; Z79.02 Long term (current) use of antithrombotics/antiplatelets; Z79.82 Long term (current) use of aspirin; Z86.19 Personal history of other infectious and parasitic diseases; Z87.891 Personal history of nicotine dependence; Z95.1 Presence of aortocoronary bypass graft; Z79.899 Other long term (current) drug therapy; Y83.8 Other surgical procedures as the cause of abnormal reaction of the patient, or of later complication, without mention of misadventure at the time of the procedure
CPT/HCPCS: 97605

== ENCOUNTER 2019-01-01 10:01 | Day surgery (SDC) | payer BC ==
[~2019-01-01 10:01] MED LIST changes: -DOCU100C41 PO
[2019-01-01] MEDS ORDERED: LIDOcaine/PRILOcaine 5gm cream TP ONE (11:07)
--- NOTE | 2019-01-01 15:19 | NUR ---
Patient ambulated independently from [facility] and was admitted to outpatient wound care for physician visit with Kashmir Thurman MD. Dressing removed, wound cleansed and Emla cream applied per order. Patient assessed for changes in conditions, medications and medical history. Dr. Thurman at bedside accompanied by RN. Wound assessed, time out performed by MD/RN. Wound debrided as detailed in the physician progress/procedure note. Plan of care discussed with patient. Dressings placed per MD orders. Patient instructed on the signs and symptoms of infection and to call the Wound Center if any occur or to go to the ED if we are closed: Increased pain in wound Increase in drainage from the wound Redness in the skin surrounding the wound Bleeding from the wound Temperature of 101 or greater Pt instructed that they should not be disconnected from suction for more than 2 hours at a time. If they are not able to get the suction back on they need to remove the dressing and take all of the foam out of the wound, place hydrogel gauze on/in the wound, and change the dressing daily until someone can replace the dressing. Pt instructed to call the Wound Center or their Home Health Agency immediately if they notice a change in the color or amount of the fluid in the canister, their wound looks more red than usual or has a foul smell, the skin around their wound looks reddened or irritated, the dressing feels or appears loose, they experience pain or the alarm will not turn off. Pt instructed to call 911 or go to the ED if their canister fills rapidly with blood. Patient instructed that the weight of their body puts a large amount of pressure on their wounds. This pressure keeps the new tissue from growing and inhibits new blood vessels from forming. Explained that, if they continue to bear weight on a body part that has a wound, the time it takes to heal the wound increases, the wound may get worse or the wound may not heal at all. Patient verbalized understanding of all discharge instructions and plan of care and ambulated independently out to [facility] in stable condition with no sign or symptom of distress at time of discharge. Addendum: 01/01/19 at 1523 by Ermelinda Hernandez RN Amended: Links added.
== END 2019-01-01 12:18 | disposition home or self-care (01) ==
LOC: WOUND CARE 10:01
PROVIDERS: ATTEND Surgery
DX: T81.89XD Other complications of procedures, not elsewhere classified, subsequent encounter (principal); E11.622 Type 2 diabetes mellitus with other skin ulcer; L98.492 Non-pressure chronic ulcer of skin of other sites with fat layer exposed; L97.212 Non-pressure chronic ulcer of right calf with fat layer exposed; L97.812 Non-pressure chronic ulcer of other part of right lower leg with fat layer exposed; I83.013 Varicose veins of right lower extremity with ulcer of ankle; L97.311 Non-pressure chronic ulcer of right ankle limited to breakdown of skin; E11.65 Type 2 diabetes mellitus with hyperglycemia; I25.10 Atherosclerotic heart disease of native coronary artery without angina pectoris; I10 Essential (primary) hypertension; I25.2 Old myocardial infarction; G89.29 Other chronic pain; Z79.02 Long term (current) use of antithrombotics/antiplatelets; Z79.82 Long term (current) use of aspirin; Z86.19 Personal history of other infectious and parasitic diseases; Z87.891 Personal history of nicotine dependence; Z95.1 Presence of aortocoronary bypass graft; Z79.899 Other long term (current) drug therapy; Y83.8 Other surgical procedures as the cause of abnormal reaction of the patient, or of later complication, without mention of misadventure at the time of the procedure
CPT/HCPCS: 97605; A4456

== ENCOUNTER 2019-01-08 08:30 | Day surgery (SDC) | payer BC ==
--- NOTE | 2019-01-08 10:45 | NUR ---
Patient ambulated independently from lobby accompanied by sisters and was admitted to outpatient wound care for physician visit with Kashmir Thurman MD. Dressing removed, wound cleansed. Patient assessed for changes in conditions, medications and medical history. 0955 - Dr. Thurman at bedside accompanied by RN. Wound assessed, time out performed by MD/RN. Wound debrided as detailed in the physician progress/procedure note. Plan of care discussed with patient. Dressings placed per MD orders. Patient instructed on the signs and symptoms of infection and to call the Wound Center if any occur or to go to the ED if we are closed: Increased pain in wound Increase in drainage from the wound Redness in the skin surrounding the wound Bleeding from the wound Temperature of 101 or greater Patient instructed that the weight of their body puts a large amount of pressure on their wounds. This pressure keeps the new tissue from growing and inhibits new blood vessels from forming. Explained that, if they continue to bear weight on a body part that has a wound, the time it takes to heal the wound increases, the wound may get worse or the wound may not heal at all. Patient verbalized understanding of all discharge instructions and plan of care and ambulated independently accompanied by her sisters out to [facility] in stable condition with no sign or symptom of distress at time of discharge.
== END 2019-01-08 10:34 | disposition home or self-care (01) ==
LOC: WOUND CARE 08:30
PROVIDERS: ATTEND Surgery
DX: T81.89XD Other complications of procedures, not elsewhere classified, subsequent encounter (principal); E11.622 Type 2 diabetes mellitus with other skin ulcer; L98.492 Non-pressure chronic ulcer of skin of other sites with fat layer exposed; I83.013 Varicose veins of right lower extremity with ulcer of ankle; L97.311 Non-pressure chronic ulcer of right ankle limited to breakdown of skin; E11.65 Type 2 diabetes mellitus with hyperglycemia; I25.10 Atherosclerotic heart disease of native coronary artery without angina pectoris; I10 Essential (primary) hypertension; I25.2 Old myocardial infarction; G89.29 Other chronic pain; Z79.02 Long term (current) use of antithrombotics/antiplatelets; Z79.82 Long term (current) use of aspirin; Z86.19 Personal history of other infectious and parasitic diseases; Z87.891 Personal history of nicotine dependence; Z95.1 Presence of aortocoronary bypass graft; Z79.899 Other long term (current) drug therapy; Y83.8 Other surgical procedures as the cause of abnormal reaction of the patient, or of later complication, without mention of misadventure at the time of the procedure
CPT/HCPCS: 97597; A6021; A6206; A6213

== ENCOUNTER 2019-01-16 10:30 | Day surgery (SDC) | payer BC ==
--- NOTE | 2019-01-16 12:45 | NUR ---
Patient ambulated independently accompanied by sister from [facility] and was admitted to outpatient wound care for physician visit with Kashmir Thurman MD. Dressing removed, wound cleansed and lidocaine applied per order. Patient assessed for changes in conditions, medications and medical history. 1210 - Dr. Thurman at bedside accompanied by RN. Wound assessed, time out performed by MD/RN. Wound debrided as detailed in the physician progress/procedure note. Plan of care discussed with patient. Dressings placed per MD orders. Patient instructed on the signs and symptoms of infection and to call the Wound Center if any occur or to go to the ED if we are closed: Increased pain in wound Increase in drainage from the wound Redness in the skin surrounding the wound Bleeding from the wound Temperature of 101 or greater Patient instructed that the weight of their body puts a large amount of pressure on their wounds. This pressure keeps the new tissue from growing and inhibits new blood vessels from forming. Explained that, if they continue to bear weight on a body part that has a wound, the time it takes to heal the wound increases, the wound may get worse or the wound may not heal at all. Patient verbalized understanding of all discharge instructions and plan of care and ambulated independently accompanied by her sister out to [facility] in stable condition with no sign or symptom of distress at time of discharge.
== END 2019-01-16 12:40 | disposition home or self-care (01) ==
LOC: WOUND CARE 10:30
PROVIDERS: ATTEND Surgery
DX: T81.89XD Other complications of procedures, not elsewhere classified, subsequent encounter (principal); E11.622 Type 2 diabetes mellitus with other skin ulcer; L98.492 Non-pressure chronic ulcer of skin of other sites with fat layer exposed; I83.013 Varicose veins of right lower extremity with ulcer of ankle; L97.311 Non-pressure chronic ulcer of right ankle limited to breakdown of skin; E11.65 Type 2 diabetes mellitus with hyperglycemia; I25.10 Atherosclerotic heart disease of native coronary artery without angina pectoris; I10 Essential (primary) hypertension; I25.2 Old myocardial infarction; G89.29 Other chronic pain; Z79.02 Long term (current) use of antithrombotics/antiplatelets; Z79.82 Long term (current) use of aspirin; Z86.19 Personal history of other infectious and parasitic diseases; Z87.891 Personal history of nicotine dependence; Z95.1 Presence of aortocoronary bypass graft; Z79.899 Other long term (current) drug therapy; Y83.8 Other surgical procedures as the cause of abnormal reaction of the patient, or of later complication, without mention of misadventure at the time of the procedure
CPT/HCPCS: 97597; A6021; A6206; A6212

== ENCOUNTER 2019-01-22 08:25 | Day surgery (SDC) | payer BC ==
[2019-01-22] MEDS ORDERED: LIDOcaine/PRILOcaine 5gm cream TP ONE (09:19)
--- NOTE | 2019-01-22 15:17 | NUR ---
Patient ambulated independently from [facility] and was admitted to outpatient wound care for physician visit with Kashmir Thurman MD. Dressing removed, wound cleansed and Emla cream applied per order. Patient assessed for changes in conditions, medications and medical history. 1000 - Dr. Thurman at bedside accompanied by RN. Wound assessed, time out performed by MD/RN. Wound debrided as detailed in the physician progress/procedure note. Plan of care discussed with patient. Dressings placed per MD orders. Patient instructed on the signs and symptoms of infection and to call the Wound Center if any occur or to go to the ED if we are closed: Increased pain in wound Increase in drainage from the wound Redness in the skin surrounding the wound Bleeding from the wound Temperature of 101 or greater Patient instructed that the weight of their body puts a large amount of pressure on their wounds. This pressure keeps the new tissue from growing and inhibits new blood vessels from forming. Explained that, if they continue to bear weight on a body part that has a wound, the time it takes to heal the wound increases, the wound may get worse or the wound may not heal at all. Patient verbalized understanding of all discharge instructions and plan of care and ambulated independently out to [facility] in stable condition with no sign or symptom of distress at time of discharge.
== END 2019-01-22 10:29 | disposition home or self-care (01) ==
LOC: WOUND CARE 08:25
PROVIDERS: ATTEND Surgery
DX: T81.89XD Other complications of procedures, not elsewhere classified, subsequent encounter (principal); E11.622 Type 2 diabetes mellitus with other skin ulcer; L98.492 Non-pressure chronic ulcer of skin of other sites with fat layer exposed; I83.013 Varicose veins of right lower extremity with ulcer of ankle; L97.311 Non-pressure chronic ulcer of right ankle limited to breakdown of skin; E11.65 Type 2 diabetes mellitus with hyperglycemia; I25.10 Atherosclerotic heart disease of native coronary artery without angina pectoris; I10 Essential (primary) hypertension; I25.2 Old myocardial infarction; G89.29 Other chronic pain; Z79.02 Long term (current) use of antithrombotics/antiplatelets; Z79.82 Long term (current) use of aspirin; Z86.19 Personal history of other infectious and parasitic diseases; Z87.891 Personal history of nicotine dependence; Z95.1 Presence of aortocoronary bypass graft; Z79.899 Other long term (current) drug therapy; Y83.8 Other surgical procedures as the cause of abnormal reaction of the patient, or of later complication, without mention of misadventure at the time of the procedure
CPT/HCPCS: 97597; A6021; A6206; A6212

== ENCOUNTER 2019-01-29 08:22 | Day surgery (SDC) | payer BC ==
[2019-01-29] MEDS ORDERED: LIDOcaine/PRILOcaine 5gm cream TP ONE (09:12)
--- NOTE | 2019-01-29 10:15 | NUR ---
Patient ambulated independently from [facility] and was admitted to outpatient wound care for physician visit with Kashmir Thurman MD. Dressing removed, wound cleansed and Emla cream applied per order. Patient assessed for changes in conditions, medications and medical history. 0955 - Dr. Thurman at bedside accompanied by RN. Wound assessed, time out performed by MD/RN. Wound debrided as detailed in the physician progress/procedure note. Plan of care discussed with patient. Dressings placed per MD orders. Patient instructed on the signs and symptoms of infection and to call the Wound Center if any occur or to go to the ED if we are closed: Increased pain in wound Increase in drainage from the wound Redness in the skin surrounding the wound Bleeding from the wound Temperature of 101 or greater Patient instructed that the weight of their body puts a large amount of pressure on their wounds. This pressure keeps the new tissue from growing and inhibits new blood vessels from forming. Explained that, if they continue to bear weight on a body part that has a wound, the time it takes to heal the wound increases, the wound may get worse or the wound may not heal at all. Patient verbalized understanding of all discharge instructions and plan of care and ambulated independently out to [facility] in stable condition with no sign or symptom of distress at time of discharge.
== END 2019-01-29 10:00 | disposition home or self-care (01) ==
LOC: WOUND CARE 08:22
PROVIDERS: ATTEND Surgery
DX: T81.89XD Other complications of procedures, not elsewhere classified, subsequent encounter (principal); E11.622 Type 2 diabetes mellitus with other skin ulcer; L98.492 Non-pressure chronic ulcer of skin of other sites with fat layer exposed; I83.013 Varicose veins of right lower extremity with ulcer of ankle; L97.311 Non-pressure chronic ulcer of right ankle limited to breakdown of skin; E11.65 Type 2 diabetes mellitus with hyperglycemia; I25.10 Atherosclerotic heart disease of native coronary artery without angina pectoris; I10 Essential (primary) hypertension; I25.2 Old myocardial infarction; G89.29 Other chronic pain; Z79.02 Long term (current) use of antithrombotics/antiplatelets; Z79.82 Long term (current) use of aspirin; Z86.19 Personal history of other infectious and parasitic diseases; Z87.891 Personal history of nicotine dependence; Z95.1 Presence of aortocoronary bypass graft; Z79.899 Other long term (current) drug therapy; Y83.8 Other surgical procedures as the cause of abnormal reaction of the patient, or of later complication, without mention of misadventure at the time of the procedure
CPT/HCPCS: 97597; A6021; A6206; A6212

== ENCOUNTER 2019-02-05 08:10 | Day surgery (SDC) | payer BC ==
--- NOTE | 2019-02-05 10:30 | NUR ---
Patient ambulated independently from [facility] and was admitted to outpatient wound care for physician visit with Kashmir Thurman MD. Dressing removed, wound cleansed and lidocaine applied per order. Patient assessed for changes in conditions, medications and medical history. 1015 - Dr. Thurman at bedside accompanied by RN. Wound assessed, time out performed by MD/RN. Wound debrided as detailed in the physician progress/procedure note. Plan of care discussed with patient. Dressings placed per MD orders. Patient instructed on the signs and symptoms of infection and to call the Wound Center if any occur or to go to the ED if we are closed: Increased pain in wound Increase in drainage from the wound Redness in the skin surrounding the wound Bleeding from the wound Temperature of 101 or greater Patient instructed that the weight of their body puts a large amount of pressure on their wounds. This pressure keeps the new tissue from growing and inhibits new blood vessels from forming. Explained that, if they continue to bear weight on a body part that has a wound, the time it takes to heal the wound increases, the wound may get worse or the wound may not heal at all. Patient verbalized understanding of all discharge instructions and plan of care and ambulated independently out to [facility] in stable condition with no sign or symptom of distress at time of discharge.
== END 2019-02-05 10:30 | disposition home or self-care (01) ==
LOC: WOUND CARE 08:10
PROVIDERS: ATTEND Surgery
DX: T81.89XD Other complications of procedures, not elsewhere classified, subsequent encounter (principal); E11.622 Type 2 diabetes mellitus with other skin ulcer; L98.492 Non-pressure chronic ulcer of skin of other sites with fat layer exposed; I83.013 Varicose veins of right lower extremity with ulcer of ankle; L97.311 Non-pressure chronic ulcer of right ankle limited to breakdown of skin; E11.65 Type 2 diabetes mellitus with hyperglycemia; I25.10 Atherosclerotic heart disease of native coronary artery without angina pectoris; I10 Essential (primary) hypertension; I25.2 Old myocardial infarction; G89.29 Other chronic pain; Z79.02 Long term (current) use of antithrombotics/antiplatelets; Z79.82 Long term (current) use of aspirin; Z86.19 Personal history of other infectious and parasitic diseases; Z87.891 Personal history of nicotine dependence; Z95.1 Presence of aortocoronary bypass graft; Z79.899 Other long term (current) drug therapy; Y83.8 Other surgical procedures as the cause of abnormal reaction of the patient, or of later complication, without mention of misadventure at the time of the procedure
CPT/HCPCS: 97597; A6021; A6206; A6212

== ENCOUNTER 2019-07-03 05:34 | Day surgery (SDC) | payer BC ==
[2019-06-29 13:33] LABS: BASOPHILS % (AUTO) 0.8 % (0-1); EOSINOPHILS # (AUTO) 0.2 X10'3 (0-0.9); LYMPHOCYTES # (AUTO) 1.6 X10'3 (1.1-4.8); MEAN CORPUSCULAR HEMOGLOBIN 30.9 PG (27.0-31.0); MEAN CORPUSCULAR HGB CONC 34.5 g/dL (33.0-36.5); MEAN CORPUSCULAR VOLUME 89.7 FL (78-98); MONOCYTES # (AUTO) 0.5 X10'3 (0-0.9); MONOCYTES % (AUTO) 10.2 % (2-12); PRE OP HEMATOCRIT 46.8 % (35.0-45.0); PRE OP HEMOGLOBIN 16.1 g/dL (12.0-16.0); PRE OP PLATELET COUNT 165 X10'3 (140-440); RED BLOOD COUNT 5.21 X10'6 (4.20-5.60)
[2019-06-29 13:44] LABS: ALBUMIN 4.2 G/DL (3.4-5.0); ALKALINE PHOSPHATASE 105 IU/L (46-116); BLOOD UREA NITROGEN 15 MG/DL (7-18); BUN/CREATININE RATIO 21.4 (6.6-38.0); CALCIUM 9.5 MG/DL (8.5-10.1); CHLORIDE 106 MMOL/L (99-107); PRE OP ALT 21 U/L (30-65); PRE OP ANION GAP 10 (8-16); PRE OP AST 24 U/L (10-37); PRE OP BILIRUB, TOTAL 0.3 MG/DL (0.0-1.0); PRE OP GLUCOSE 91 MG/DL (70-104); PRE OP SODIUM 141 MMOL/L (135-145); TOTAL CARBON DIOXIDE 25.3 MMOL/L (24-32); TOTAL PROTEIN 8.4 G/DL (6.4-8.2); eGFR 86 ML/MIN
[2019-06-29 13:46] LABS: HEMOGLOBIN A1C 5.4 % (4.5-6.2); PRE OP INR 0.9 INR; PRE OP PROTIME 9.9 SECONDS (9.0-12.0)
[2019-06-29 13:52] LABS: CLARITY,URINE CLEAR (Clear); COLOR,URINE YELLOW (Yellow); GLUCOSE, URINE NEGATIVE (Neg); KETONES,URINE NEGATIVE (Neg); LEUKOCYTE ESTERASE ,URINE NEGATIVE (Neg); NITRITES, URINE NEGATIVE (Neg); OCCULT BLOOD,URINE NEGATIVE (Neg); PROTEIN,URINE NEGATIVE (Neg); UROBILINOGEN,URINE 0.2 E.U/dL (0.2-1.0)
[2019-06-29 13:53] LABS: PRE OP POTASSIUM 3.3 MMOL/L (3.4-5.1)
[2019-06-29 13:55] LABS: UA COLLECTION TYPE NON-SPECIFIED
[~2019-07-03] VITALS: Ht 163.8 cm; Wt 81.6 kg
[~2019-07-03 05:34] MED LIST changes: -ALBU8.5H8 IH; +ASCO500C15 PO; -ASPI-1265 PO; +CHOL100046 PO; +DOCUMENT DATE & TIME OF BETA-BLOCKER PO ONE; -GABA-530 PO; +GLUC100017 PO; +LORA10TA65 PO; +MULT-933 PO; -OXYC-658 PO; -[UNRECOGNIZED DRUG - CODE]; +cefazolin/dext.iso 2gm/50ml 50 ML IV ONE; +famotidine 20mg tablet PO ONE; +gabapentin 300mg capsule PO ONE; +mupirocin 2% nasal ointment 1gm UD NS ONE; +ringers solution, lacted 1,000 ML IV ONE; +vancomycin inj 1,500 MG in normal saline 300ml IV soln IV ONE
[2019-07-03 05:40] VITALS: BP 119/80
[2019-07-03] MEDS ORDERED: LIDOcaine 1% (10mg/ml) 2ml vial ONE (06:15)
[2019-07-03] MEDS ORDERED: fentaNYL/PF 50MCG/1 ML 2ML syringe ONE (07:23)
[2019-07-03] MEDS ORDERED: midazolam 2 mg/2 ml injection ONE (07:23)
[2019-07-03] MEDS ORDERED: BUPIVAcaine 0.5% inj/PF 30 ML ONE (07:36)
[2019-07-03] MEDS ORDERED: ringers solution, lacted 1,000 ML IV SCH (07:50)
[2019-07-03] MEDS ORDERED: meperidine/PF 25mg/ml syringe IV PRN ×3 (07:50)
[2019-07-03] MEDS ORDERED: morphine 4 MG/ML inj SYRINge IV PRN ×2 (07:50)
[2019-07-03] MEDS ORDERED: proCHLORperazine 10 MG/2 ml inj IV PRN (07:50)
[2019-07-03] MEDS ORDERED: BUPIVAcaine 0.5% inj/PF 30 ml vial IJ ONE (07:50)
[2019-07-03] MEDS ORDERED: ondansetron/PF 4mg/2ml inj IV PRN (07:50)
[2019-07-03] MEDS ORDERED: propofol inj 20 ML IV ONE (07:51)
[2019-07-03 08:10] VITALS: BP 140/79
--- NOTE | 2019-07-03 08:10 | NUR ---
Received from OR via BED , accompanied by Anesthesiologist DR CORDERO and report given by Anesthesiolgist. PATIENT WAKING UP, DENIES PAIN, V/S WNL, NEUROVASCULAR CHECKS INTACT, 20G PIV RUE, SCD ON, STERNAL DRESSING CDI.
[2019-07-03 08:20] VITALS: BP 100/50
[2019-07-03 08:30] VITALS: BP 106/57
[2019-07-03 08:40] VITALS: BP 107/54
[2019-07-03 08:50] VITALS: BP 103/46
--- NOTE | 2019-07-03 08:50 | NUR ---
PATIENT A&OX4, DENIES PAIN, V/S WNL, NEUROVASCULAR CHECKS INTACT, 20G PIV RUE D/C, SCD OFF, STERNAL DRESSING CDI. I HAVE REVIEWED D/C INSTRUCTIONS WITH PATIENT AND FAMILY AND THEY HAVE VERBALIZED UNDERSTANDING. PATIENT D/C HOME WITH ALL BELONGINGS AND FAMILY GAVE TRANSPORT HOME
== END 2019-07-03 08:50 | disposition home or self-care (01) ==
LOC: PAS 05:34
PROVIDERS: ATTEND Thoracic Surgery (Cardiothoracic Vascular Surgery)
DX: T85.848A Pain due to other internal prosthetic devices, implants and grafts, initial encounter (principal); I25.10 Atherosclerotic heart disease of native coronary artery without angina pectoris; I10 Essential (primary) hypertension; I25.2 Old myocardial infarction; E66.9 Obesity, unspecified; Z68.30 Body mass index [BMI] 30.0-30.9, adult; Z86.19 Personal history of other infectious and parasitic diseases; Z88.2 Allergy status to sulfonamides; Z91.040 Latex allergy status; Z91.09 Other allergy status, other than to drugs and biological substances; Z91.018 Allergy to other foods; Z98.51 Tubal ligation status; Z98.890 Other specified postprocedural states; Z87.891 Personal history of nicotine dependence; Z79.01 Long term (current) use of anticoagulants; Z95.1 Presence of aortocoronary bypass graft; Z79.899 Other long term (current) drug therapy; Y83.8 Other surgical procedures as the cause of abnormal reaction of the patient, or of later complication, without mention of misadventure at the time of the procedure; Y92.89 Other specified places as the place of occurrence of the external cause
CPT/HCPCS: 20680; 36415; 71046; 80053; 81003; 82948; 83036; 85025; 85610; 85730; J2001; J2250; J2704; J3010; A4618; A7000; J3370; J7120